=== PATIENT | female | born 1955 | race African-American/Black ===

== ENCOUNTER 2018-08-24 11:10 | Inpatient (IN) | payer OTHER ==
--- NOTE | 2018-08-24 11:37 | PDOC ---
History of Present Illness - General Chief Complaint: Lethargy Stated Complaint: altered mental status/hypotensive Time Seen by Provider: 08/24/18 11:36 - History of Present Illness Initial Comments: 62 year old female with PMH Of ILD (on steroids and on lung transplant list), HTN, HLD, and recent diagnosis of NIDDM presentign with altered mental status. Patient is acutely confuse and cannot provide too much history but does say "I fainted" and knows that she woke up at 6 AM this morning. Her family at bedside state that she was complaining of nausea 4 days ago on and didn't go to work on Friday. At bedside she denies any issues but appears very lethargic and confused. Family states that she is a very active and functional individual with well controlled pathologies. 08/24/18 15:39 Past History - Past Medical History Allergies/Adverse Reactions: Allergies Allergy/AdvReac Type Severity Reaction Status Date / Time No Known Allergies Allergy Verified 08/24/18 11:29 Home Medications: Ambulatory Orders Atorvastatin Calcium 10 mg PO DAILY 08/24/18 Cholecalciferol (Vitamin D3) [Vitamin D3] 800 unit PO DAILY 08/24/18 Metformin HCl [Glucophage] 500 mg PO BID 08/24/18 Mycophenolate Mofetil [Cellcept] 500 mg PO BID 08/24/18 Olmesartan Medoxomil [Benicar (Nf)] 20 mg PO DAILY 08/24/18 Pantoprazole Sodium 40 mg PO DAILY 08/24/18 Prednisone [Prednisone 50 MG TABLETS] 50 mg PO DAILY 08/24/18 COPD: Yes Diabetes: Yes HTN: Yes Hypercholesterolemia: Yes - Suicide/Smoking/Psychosocial Hx Smoking History: Unknown if ever smoked Have you smoked in the past 12 months: No Information on smoking cessation initiated: No Hx Alcohol Use: No Drug/Substance Use Hx: No Review of Systems - Review of Systems Able to Perform ROS?: No (altered) *Physical Exam - Vital Signs Last Vital Signs Temp Pulse Resp BP Pulse Ox 95.8 F L 130 H 28 H 94/77 100 08/24/18 11:13 08/24/18 11:13 08/24/18 11:13 08/24/18 11:13 08/24/18 11:13 - Physical Exam General Appearance: Yes: Nourished, Appropriately Dressed. No: Apparent Distress HEENT: positive: EOMI, MAEGAN. negative: Normal ENT Inspection (dried mucous membranes with vomitus at the corners of her mouth) Neck: positive: Trachea midline, Normal Thyroid, Supple. negative: Tender, Rigid Respiratory/Chest: positive: Lungs Clear, Normal Breath Sounds, Respiratory Distress (mild respiratory distress), Rapid RR. negative: Chest Tender, Accessory Muscle Use Cardiovascular: positive: Regular Rhythm, Tachycardia. negative: Regular Rate Gastrointestinal/Abdominal: positive: Normal Bowel Sounds, Flat, Soft. negative : Tender Lymphatic: negative: Adenopathy, Tenderness Musculoskeletal: positive: Normal Inspection. negative: Decreased Range of Motion Extremity: positive: Normal Capillary Refill, Normal Inspection, Normal Range of Motion. negative: Tender Integumentary: positive: Normal Color, Dry, Warm Neurologic: positive: Alert. negative: Fully Oriented (AO x 2 (person and place ) but had very poor short term recall and believed it was ), Normal Mood/Affect , Normal Response, Motor Strength 09/20 ED Treatment Course - LABORATORY CBC & Chemistry Diagram: 08/25/18 06:20 08/25/18 10:03 Medical Decision Making - Critical Care Time Total Critical Care Time (minutes): 60 Critical Care Statement: The care of this patient involved high complexity decision making to prevent further life threatening deterioration of the patient 's condition and/or to evaluate & treat vital organ system(s) failure or risk of failure. - Medical Decision Making 62 year old female with PMH of ILD and new diagnosis of NIDDM presenting with AMS since this AM after not being heard from for the past 3 days. Patient presenting tachynpic, tachycardic, with dry mucous membranes and dried vomitus around her mouth. A FS was performed with corroborates our leading diagnosis of metabolic encephalopathy in the setting of elevated blood sugars or DKA vs. HHONK. HHONK was corroborated by the lack of an anion GAP and an a blood sugar of 890. Other diagnosis that could explain her AMS or account for a worsened AMS could be steroid induced delirium (on 50 MG of prednisonse daily). If this is truly isolated HHS, it still remains unclear as to what the inciting cause was but it may have been subacute in onset as she was complaining of nausea 4 days prior. It may be that she was under-diagnosed with NIDDM when in fact she truly needs insulin for control. Patient was originally signed out to Dr. Villatoro and the ICU team for ICU care as she required INsulin nida when her BG was still >600 despite 8 units of IV insulin anf two liters of NS. power Alanis patient's sugars corrected to 300s after a few more hours of hydration and insulin drip usage. The drip was discontinued and the change of her status to a possible tele admission was discussed with Dr. Rothman after the ICU did not respond to page x 1. *DC/Admit/Observation/Transfer Diagnosis at time of Disposition: Hyperglycemic hyperosmolar nonketotic coma - Discharge Dispostion Condition at time of disposition: Critical Decision to Admit order: Yes - Referrals - Patient Instructions - Post Discharge Activity
[2018-08-24] MEDS ORDERED: SODIUM CHLORIDE 0.9% 500 ML INFUS.BAG IV ONE ×2 (12:05→14:09)
--- NOTE | 2018-08-24 12:52 | PDOC ---
Attending Attestation - Resident Resident Name: Alba Gonzalez - ED Attending Attestation I have performed the following: I have examined & evaluated the patient, The case was reviewed & discussed with the resident, I agree w/resident's findings & plan, Exceptions are as noted - HPI HPI: 08/24/18 12:48 62 F with h/o DM, HTN, ILD, presenting to ED with lethargy and confusion. Per family, pt was in her USOH until about 2 days ago when she began to complain of nausea and vomiting. Family did not see the pt until today when they found her confused and lethargic. In ED, pt is AnOx2, unable to contribute additional history. Family does not believe pt had any falls or head injury. Does not use ETOH or other drugs. Pt's friend: Trupti Lindquist [phone] Dianna Kothari [phone] - Physicial Exam PE: 08/24/18 12:52 GENERAL: Awake, alert, in no acute distress. HEAD: No signs of trauma EYES: PERRLA, EOMI, sclera anicteric, conjunctiva clear ENT: Auricles normal inspection, hearing grossly normal, nares patent, oropharynx clear without exudates. Moist mucosa NECK: Nontender, no stepoffs, Normal ROM, supple, no lymphadenopathy, JVD, or masses LUNGS: Breath sounds equal, clear to auscultation bilaterally. No wheezes, and no crackles HEART: Regular rate and rhythm, normal S1 and S2, no murmurs, rubs or gallops ABDOMEN: Soft, nontender, normoactive bowel sounds. No guarding, no rebound. No masses EXTREMITIES: Normal range of motion, no edema. No clubbing or cyanosis. No cords, erythema, or tenderness NEUROLOGICAL: Cranial nerves II through XII intact. 5/5 strength and sensation in all extremities, Normal speech, normal gait, normal cerebellar function SKIN: Warm, Dry, normal turgor, no rashes or lesions noted. - Critical Care Time Total Critical Care Time: 120 Critical Care Statement: The care of this patient involved high complexity decision making to prevent further life threatening deterioration of the patient 's condition and/or to evaluate & treat vital organ system(s) failure or risk of failure. - Medical Decision Making 08/24/18 12:52 62 F with lethargy and confusion x 2 days. Pt with elevated fingerstick in ED, suspect DKA vs HHS. Pt with no fevers to suggest infectious process. NO neuro deficits to suggest CVA. - Labs, acetone, VBG - CT head - IVF 08/24/18 15:33 Labs with glucose 800. AG 10, trace ketones. Will tx for HHS Continue IV fluids Administer insulin .1u/kg push CT head unremarkable
[2018-08-24 13:10] LABS: VENOUS PH 7.31 (7.31-7.41)
[2018-08-24 13:13] LABS: BASO % 0.2 % (0-2.0); HEMATOCRIT 48.3 % (32.4-45.2); HEMOGLOBIN 15.1 GM/dL (10.7-15.3); LYMPH % 7.1 % (8-40); MCH 31.7 pg (25.7-33.7); MCHC 31.4 g/dl (32.0-36.0); MEAN PLT VOLUME 9.5 fl (7.5-11.1); MONO % 2.2 % (3.8-10.2); NEUT % 90.5 % (42.8-82.8); PLATELET COUNT 223 K/MM3 (134-434); RBC 4.78 M/mm3 (3.60-5.2); RDW 17.4 % (11.6-15.6); WHITE BLOOD COUNT 8.1 K/mm3 (4.0-10.0)
[2018-08-24 13:18] LABS: VENOUS PO2 24.7 mmHg (30-40)
[2018-08-24 13:40] LABS: INR 0.98 (0.83-1.09); PROTHROMBIN TIME (PATIENT) 11.6 SEC (9.7-13.0)
[2018-08-24 13:43] LABS: ACTIVATED PTT 23.1 SECONDS (25.2-36.5)
[2018-08-24 13:49] LABS: ALBUMIN 4.5 g/dl (3.4-5.0); ALK PHOS 110 U/L (45-117); ANION GAP 10 MMOL/L (8-16); BILIRUBIN,TOTAL 0.5 mg/dL (0.2-1); BLOOD UREA NITROGEN 80 mg/dL (7-18); CALCIUM 10.1 mg/dL (8.5-10.1); CHLORIDE 105 mmol/L (98-107); CO2 28 mmol/L (21-32); CREATININE 3.1 mg/dL (0.55-1.3); POTASSIUM 5.2 mmol/L (3.5-5.1); SGOT/AST 17 U/L (15-37); SGPT/ALT 34 U/L (13-61); SODIUM 143 mmol/L (136-145); TOT PROT 8.5 g/dl (6.4-8.2)
[2018-08-24 13:51] LABS: GLUCOSE,RANDOM 891 mg/dL (74-106)
[2018-08-24] MEDS ORDERED: INSULIN REGULAR HUMAN 100 UNITS/ML *VIAL IVPUSH ONE (14:08)
[2018-08-24] MEDS ORDERED: INSULIN REGULAR HUMAN 100 UNITS/ML *VIAL ONE (14:17)
[2018-08-24] MEDS ORDERED: INSULIN REGULAR 100 UNITS in SODIUM CHLORIDE 99 ML IVPB SCH (15:30)
--- NOTE | 2018-08-24 16:43 | CONSULT ---
Consultation: REQUESTING PROVIDER: Dr. Gonzalez CONSULT REQUEST: We have been asked to medically evaluate this patient for ( specify). HISTORY OF PRESENT ILLNESS: Patient is lethargic and unable to provide history. The following history is obtained from the patient's coworker at bedside and the EMR. The patient is a 62 yo f w/ PMH DM, HTN, ILD (on cellcept and transplant list) who was BIBEMS from home due to unresponsiveness and confusion. The patient left work Friday stating that she "did not feel good" and felt nauseous. From that point, the patient was not heard from over the weekend. She did not answer her coworker's phone calls on Friday. When the patient did not show up for work on Friday, her coworkers called EMS to find her. On arrival, EMS found her to be minimally responsive and confused. she was started on a 500ml bolus and brought into the ED. In the ED, she was found to have a blood glucose of 891 on BMP with a lactic acidosis and normal pH. She received .1u/kg IVP regular insulin followed by .1u/kg Insulin GTT. also received a total of 3L bolus Most BGM read >600. CXR shows possible left base pleural effusion vs. infiltrate. No fevers while in ED. REVIEW OF SYSTEMS: Unable to obtain due to clinical status PHYSICAL EXAMINATION Vital Signs - 24 hr 08/24/18 08/24/18 08/24/18 11:13 12:02 13:14 Temperature 95.8 F L 97.8 F Pulse Rate 130 H Pulse Rate [ 110 H Apical] Respiratory 28 H 30 H Rate Blood Pressure 94/77 Blood Pressure 95/79 [Left Arm] O2 Sat by Pulse 100 100 Oximetry (%) 08/24/18 08/24/18 14:15 15:14 Temperature 97.8 F Pulse Rate Pulse Rate [ 114 H Apical] Respiratory 28 H Rate Blood Pressure Blood Pressure 132/97 [Left Arm] O2 Sat by Pulse Oximetry (%) GENERAL: Patient lethargic, rousable to voice or physical stimulus. Able to follow commands inconsistently. Withdraws briskly to pain. HEAD: Normal with no signs of trauma. EYES: Pupils equal, round and reactive to light, extraocular movements intact, sclera anicteric, conjunctiva clear. No lid lag. LUNGS: Crackles heard at the right base. No accessory muscle use. HEART: Regular rate and rhythm, normal S1 and S2 without murmur, rub or gallop. ABDOMEN: Soft, nontender, not distended, normoactive bowel sounds, no guarding, no rebound, no masses. No hepatomegaly or splenomegaly. LOWER EXTREMITIES: 2+ pulses, warm, well-perfused. No calf tenderness. No peripheral edema. NEUROLOGICAL: Cranial nerves II-X intact. Strength 5/5 in all 4 extremities. SKIN: Warm, dry, normal turgor, no rashes or lesions noted. Laboratory Results - last 24 hr 08/24/18 08/24/18 08/24/18 12:05 12:05 12:05 WBC 8.1 RBC 4.78 Hgb 15.1 Hct 48.3 H MCV 101.0 H MCH 31.7 MCHC 31.4 L RDW 17.4 H Plt Count 223 MPV 9.5 Absolute Neuts (auto) 7.3 Neutrophils % 90.5 H Lymphocytes % 7.1 L Monocytes % 2.2 L Eosinophils % 0.0 Basophils % 0.2 Nucleated RBC % 0 PT with INR 11.60 INR 0.98 PTT (Actin FS) 23.1 L VBG pH 7.31 POC VBG pCO2 51.0 POC VBG pO2 24.7 L VBG HCO3 24.7 VBG O2 Sat (Patel) 29.3 L VBG Base Excess -1.9 Sodium Potassium Chloride Carbon Dioxide Anion Gap BUN Creatinine Creat Clearance w eGFR POC Glucometer Random Glucose Lactic Acid Calcium Total Bilirubin AST ALT Alkaline Phosphatase Troponin I Total Protein Albumin Acetone, Qual 08/24/18 08/24/18 08/24/18 12:05 12:05 12:05 WBC RBC Hgb Hct MCV MCH MCHC RDW Plt Count MPV Absolute Neuts (auto) Neutrophils % Lymphocytes % Monocytes % Eosinophils % Basophils % Nucleated RBC % PT with INR INR PTT (Actin FS) VBG pH POC VBG pCO2 POC VBG pO2 VBG HCO3 VBG O2 Sat (Patel) VBG Base Excess Sodium 143 Potassium 5.2 H Chloride 105 Carbon Dioxide 28 Anion Gap 10 BUN 80 H Creatinine 3.1 H Creat Clearance w eGFR 15.33 POC Glucometer Random Glucose 891 H* Lactic Acid 2.8 H* Calcium 10.1 Total Bilirubin 0.5 AST 17 ALT 34 Alkaline Phosphatase 110 Troponin I 0.08 H Total Protein 8.5 H Albumin 4.5 Acetone, Qual 08/24/18 08/24/18 08/24/18 12:05 12:21 15:26 WBC RBC Hgb Hct MCV MCH MCHC RDW Plt Count MPV Absolute Neuts (auto) Neutrophils % Lymphocytes % Monocytes % Eosinophils % Basophils % Nucleated RBC % PT with INR INR PTT (Actin FS) VBG pH POC VBG pCO2 POC VBG pO2 VBG HCO3 VBG O2 Sat (Patel) VBG Base Excess Sodium Potassium Chloride Carbon Dioxide Anion Gap BUN Creatinine Creat Clearance w eGFR POC Glucometer > 600 > 600 Random Glucose Lactic Acid Calcium Total Bilirubin AST ALT Alkaline Phosphatase Troponin I Total Protein Albumin Acetone, Qual Trace H 08/24/18 15:53 WBC RBC Hgb Hct MCV MCH MCHC RDW Plt Count MPV Absolute Neuts (auto) Neutrophils % Lymphocytes % Monocytes % Eosinophils % Basophils % Nucleated RBC % PT with INR INR PTT (Actin FS) VBG pH POC VBG pCO2 POC VBG pO2 VBG HCO3 VBG O2 Sat (Patel) VBG Base Excess Sodium Potassium Chloride Carbon Dioxide Anion Gap BUN Creatinine Creat Clearance w eGFR POC Glucometer Random Glucose Lactic Acid 3.0 H* Calcium Total Bilirubin AST ALT Alkaline Phosphatase Troponin I Total Protein Albumin Acetone, Qual Active Medications Generic Name Dose Route Start Last Admin Trade Name Freq PRN Reason Stop Dose Admin Chlorhexidine Gluconate 1 applic 08/24/18 22:00 Hibiclens For Decolonization - TP HS SMILEY Heparin Sodium (Porcine) 5,000 unit 08/24/18 18:00 Heparin - SQ Q8H-IV SMILEY Insulin Human Regular 100 100 mls @ 7.25 mls/hr 08/24/18 15:30 08/24/18 16:02 units/ Sodium Chloride IVPB 0.1 units/kg/hr TITR SMILEY 7.25 mls/hr Administration Protocol 0.1 UNITS/KG/HR Mupirocin 1 applic 08/24/18 22:00 Bactroban Ointment (For Decolonization) - NS 08/29/18 21:59 BID [facility] ASSESSMENT/PLAN: The patient is a 62 yo f w/ PMH DM, HTN, ILD (on cellcept and transplant list) who was BIBEMS from home due to unresponsiveness and confusion found to be in HHS. #Neuro -able to follow commands -waxing and waning mental status -no focal neuro deficits on limited exam #Endocrine -elevated blood glucose w/ normal pH and normal anion gap -surrently on insulin GTT -BGM q1h until stabilized -bmp q4h overnight -NS@100 -trend lactic acid q2h until decreasing -NPO while on insulin GTT -will add KCL to IVF once K+ <3.3, will monitor while on insulin GTT #Pulmonary -crackles at base could be 2/2 underlying ILD vs infectious process -CXR showing possible consolidation at left base; patient hypothermic and tachycardic; will empirically cover w/ rocephin and azithromycin -h/o ILD no cellcept and oral prednisone -c/w cellcept, holding prednisone until BGM stabilized. #cardiac -continue home Benicar for BP control #FEN -insulin GTT, NS@100 -monitor potassium as above -NPO #Prophy -heparin SQ 5k units Q8H #Dispo -admit ICU Visit type - Emergency Visit Emergency Visit: Yes ED Registration Date: 08/24/18 Care time: The patient presented to the Emergency Department on the above date and was hospitalized for further evaluation of their emergent condition. - New Patient This patient is new to me today: Yes Date on this admission: 08/24/18 - Critical Care Critical Care patient: Yes Total Critical Care Time (in minutes): 40 Critical Care Statement: The care of this patient involved high complexity decision making to prevent further life threatening deterioration of the patient 's condition and/or to evaluate & treat vital organ system(s) failure or risk of failure.
[2018-08-24 16:48] LABS: ALBUMIN 2.9 g/dl (3.4-5.0); ALK PHOS 70 U/L (45-117); ANION GAP 10 MMOL/L (8-16); BILIRUBIN,TOTAL 0.3 mg/dL (0.2-1); BLOOD UREA NITROGEN 74 mg/dL (7-18); CALCIUM 8.3 mg/dL (8.5-10.1); CHLORIDE 122 mmol/L (98-107); CO2 23 mmol/L (21-32); CREATININE 2.7 mg/dL (0.55-1.3); POTASSIUM 4.3 mmol/L (3.5-5.1); SGOT/AST 17 U/L (15-37); SGPT/ALT 23 U/L (13-61); SODIUM 155 mmol/L (136-145); TOT PROT 5.5 g/dl (6.4-8.2)
[2018-08-24 16:57] LABS: GLUCOSE,RANDOM 584 mg/dL (74-106)
[2018-08-24] MEDS ORDERED: CEFTRIAXONE 1 GM in DEXTROSE 5%-WATER - 50 ML IVPB ONE (17:00)
[2018-08-24] MEDS ORDERED: SODIUM CHLORIDE 1,000 ML IV SCH ×2 (17:00→17:15)
[2018-08-24] MEDS ORDERED: SODIUM CHLORIDE 1,000 ML with POTASSIUM CHLORIDE 20 MEQ IVPB SCH (17:01)
[2018-08-24] MEDS ORDERED: CEFTRIAXONE 1 GM/50 ML BAG ONE (18:43)
[2018-08-24] MEDS ORDERED: AZITHROMYCIN IVPB 500 MG in DEXTROSE 5%-WATER - 250 ML IVPB ONE (19:00)
[2018-08-24] MEDS ORDERED: AZITHROMYCIN IVPB 500 MG/250 ML BAG IVPB ONE (19:11)
--- NOTE | 2018-08-24 19:39 | HP ---
Admitting History and Physical - Primary Care Physician PCP: Kelsey Villatoro - Admission History of Present Illness: 62 year old female with PMH Of ILD (on steroids and on lung transplant list), HTN, HLD, and recent diagnosis of NIDDM presentign with altered mental status. Patient is acutely confuse and cannot provide too much history but does say "I fainted" and knows that she woke up at 6 AM this morning. Her family at bedside state that she was complaining of nausea 4 days ago on and didn't go to work on Friday. At bedside she denies any issues but appears very lethargic and confused. Family states that she is a very active and functional individual with well controlled pathologies. - Past Medical History Cardiovascular: Yes: HTN, Hyperlipdemia Endocrine: Yes: Diabetes Mellitus - Smoking History Smoking history: Unknown if ever smoked Have you smoked in the past 12 months: No - Alcohol/Substance Use Hx Alcohol Use: No Home Medications - Allergies Allergies/Adverse Reactions: Allergies Allergy/AdvReac Type Severity Reaction Status Date / Time No Known Allergies Allergy Verified 08/24/18 11:29 - Home Medications Home Medications: Ambulatory Orders Atorvastatin Calcium 10 mg PO DAILY 08/24/18 Cholecalciferol (Vitamin D3) [Vitamin D3] 800 unit PO DAILY 08/24/18 Metformin HCl [Glucophage] 500 mg PO BID 08/24/18 Mycophenolate Mofetil [Cellcept] 500 mg PO BID 08/24/18 Olmesartan Medoxomil [Benicar (Nf)] 20 mg PO DAILY 08/24/18 Pantoprazole Sodium 40 mg PO DAILY 08/24/18 Prednisone [Prednisone 50 MG TABLETS] 50 mg PO DAILY 08/24/18 Physical Examination Vital Signs: Vital Signs Temperature 97.8 F 08/24/18 14:15 Pulse Rate 104 H 08/24/18 18:24 Respiratory Rate 25 H 08/24/18 18:24 Blood Pressure 103/76 08/24/18 18:24 O2 Sat by Pulse Oximetry (%) 95 08/24/18 18:24 Constitutional: Yes: No Distress HENT: Yes: Atraumatic Neck: Yes: Supple Cardiovascular: Yes: Regular Rate and Rhythm Respiratory: Yes: CTA Bilaterally Gastrointestinal: Yes: Normal Bowel Sounds Extremities: Yes: WNL Neurological: Yes: Alert, Oriented Labs: CBC, BMP 08/24/18 12:05 08/24/18 16:00 Problem List - Problems (1) Diabetes Assessment/Plan: on insulin and bgms on prednisone which could be the reason for high blood sugars endocrine on board Code(s): E11.9 - TYPE 2 DIABETES MELLITUS WITHOUT COMPLICATIONS (2) HTN (hypertension) Assessment/Plan: on meds monitor Code(s): I10 - ESSENTIAL (PRIMARY) HYPERTENSION (3) HLD (hyperlipidemia) Code(s): E78.5 - HYPERLIPIDEMIA, UNSPECIFIED (4) Chronic hypoxemic respiratory failure Assessment/Plan: on oxygen Code(s): J96.11 - CHRONIC RESPIRATORY FAILURE WITH HYPOXIA (5) Hyperglycemic hyperosmolar nonketotic coma Assessment/Plan: on ivf insulin drip Code(s): E11.01 - TYPE 2 DIABETES MELLITUS WITH HYPEROSMOLARITY WITH COMA (6) Interstitial lung disease Assessment/Plan: on prednisone continue other home meds Code(s): J84.9 - INTERSTITIAL PULMONARY DISEASE, UNSPECIFIED Assessment/Plan Laboratory Tests 08/24/18 08/24/18 08/24/18 12:05 12:05 12:05 WBC 8.1 RBC 4.78 Hgb 15.1 Hct 48.3 H MCV 101.0 H MCH 31.7 MCHC 31.4 L RDW 17.4 H Plt Count 223 MPV 9.5 Absolute Neuts (auto) 7.3 Neutrophils % 90.5 H Lymphocytes % 7.1 L Monocytes % 2.2 L Eosinophils % 0.0 Basophils % 0.2 Nucleated RBC % 0 PT with INR 11.60 INR 0.98 PTT (Actin FS) 23.1 L VBG pH 7.31 POC VBG pCO2 51.0 POC VBG pO2 24.7 L VBG HCO3 24.7 VBG O2 Sat (Patel) 29.3 L VBG Base Excess -1.9 Sodium Potassium Chloride Carbon Dioxide Anion Gap BUN Creatinine Creat Clearance w eGFR POC Glucometer Random Glucose Lactic Acid Calcium Total Bilirubin AST ALT Alkaline Phosphatase Troponin I Total Protein Albumin Acetone, Qual 08/24/18 08/24/18 08/24/18 12:05 12:05 12:05 WBC RBC Hgb Hct MCV MCH MCHC RDW Plt Count MPV Absolute Neuts (auto) Neutrophils % Lymphocytes % Monocytes % Eosinophils % Basophils % Nucleated RBC % PT with INR INR PTT (Actin FS) VBG pH POC VBG pCO2 POC VBG pO2 VBG HCO3 VBG O2 Sat (Patel) VBG Base Excess Sodium 143 Potassium 5.2 H Chloride 105 Carbon Dioxide 28 Anion Gap 10 BUN 80 H Creatinine 3.1 H Creat Clearance w eGFR 15.33 POC Glucometer Random Glucose 891 H* Lactic Acid 2.8 H* Calcium 10.1 Total Bilirubin 0.5 AST 17 ALT 34 Alkaline Phosphatase 110 Troponin I 0.08 H Total Protein 8.5 H Albumin 4.5 Acetone, Qual 08/24/18 08/24/18 08/24/18 12:05 12:21 15:26 WBC RBC Hgb Hct MCV MCH MCHC RDW Plt Count MPV Absolute Neuts (auto) Neutrophils % Lymphocytes % Monocytes % Eosinophils % Basophils % Nucleated RBC % PT with INR INR PTT (Actin FS) VBG pH POC VBG pCO2 POC VBG pO2 VBG HCO3 VBG O2 Sat (Patel) VBG Base Excess Sodium Potassium Chloride Carbon Dioxide Anion Gap BUN Creatinine Creat Clearance w eGFR POC Glucometer > 600 > 600 Random Glucose Lactic Acid Calcium Total Bilirubin AST ALT Alkaline Phosphatase Troponin I Total Protein Albumin Acetone, Qual Trace H 08/24/18 08/24/18 08/24/18 15:53 16:00 18:05 WBC RBC Hgb Hct MCV MCH MCHC RDW Plt Count MPV Absolute Neuts (auto) Neutrophils % Lymphocytes % Monocytes % Eosinophils % Basophils % Nucleated RBC % PT with INR INR PTT (Actin FS) VBG pH POC VBG pCO2 POC VBG pO2 VBG HCO3 VBG O2 Sat (Patel) VBG Base Excess Sodium 155 H Potassium 4.3 Chloride 122 H Carbon Dioxide 23 Anion Gap 10 BUN 74 H Creatinine 2.7 H Creat Clearance w eGFR 17.98 POC Glucometer 314 Random Glucose 584 H* Lactic Acid 3.0 H* Calcium 8.3 L Total Bilirubin 0.3 AST 17 ALT 23 Alkaline Phosphatase 70 Troponin I Total Protein 5.5 L Albumin 2.9 L Acetone, Qual Active Medications Generic Name Dose Route Start Last Admin Trade Name Freq PRN Reason Stop Dose Admin Chlorhexidine Gluconate 1 applic 08/24/18 22:00 Hibiclens For Decolonization - TP HS [facility] Heparin Sodium (Porcine) 5,000 unit 08/24/18 22:00 Heparin - SQ TID [facility] Insulin Human Regular 100 100 mls @ 7.25 mls/hr 08/24/18 15:30 08/24/18 16:02 units/ Sodium Chloride IVPB 0.1 units/kg/hr TITR SMILEY 7.25 mls/hr Administration Protocol 0.1 UNITS/KG/HR Sodium Chloride 1,000 mls @ 100 mls/hr 08/24/18 17:15 08/24/18 18:49 Normal Saline - IV 100 mls/hr ASDIR SMILEY Administration Azithromycin 500 mg/ Dextrose 250 mls @ 250 mls/hr 08/24/18 19:00 08/24/18 19 :16 IVPB 08/24/18 19:59 250 mls/hr ONCE ONE Administration Mupirocin 1 applic 08/24/18 22:00 Bactroban Ointment (For Decolonization) - NS 08/29/18 21:59 BID [facility] Mycophenolate Mofetil 500 mg 08/24/18 22:00 Cellcept - PO BID [facility] Prednisone 50 mg 08/25/18 10:00 Deltasone - PO DAILY [facility] Valsartan 160 mg 08/25/18 10:00 Diovan - PO DAILY [facility]
[2018-08-24] MEDS ORDERED: CHLORHEXIDINE GLUCONATE 4% CLEANSER FOR DECOLONIZATION TP SCH (22:00)
[2018-08-24] MEDS ORDERED: HEPARIN NA (PORCINE) 5,000 UNITS/ML 1ML VIAL SQ SCH (22:00)
[2018-08-24 22:14] LABS: ANION GAP 10 MMOL/L (8-16); BLOOD UREA NITROGEN 56 mg/dL (7-18); CALCIUM 7.6 mg/dL (8.5-10.1); CHLORIDE 128 mmol/L (98-107); CO2 21 mmol/L (21-32); CREATININE 1.9 mg/dL (0.55-1.3); POTASSIUM 4.3 mmol/L (3.5-5.1); SODIUM 159 mmol/L (136-145)
[2018-08-24 22:25] LABS: URINE APPEARANCE CLEAR; URINE BILIRUBIN NEGATIVE (NEGATIVE); URINE COLOR YELLOW; URINE GLUCOSE (UA) 3+ (NEGATIVE); URINE KETONE TRACE (NEGATIVE); URINE LEUK ESTERASE NEGATIVE (NEGATIVE); URINE NITRITE NEGATIVE (NEGATIVE); URINE PROTEIN NEGATIVE (NEGATIVE); URINE UROBILINOGEN 0.2 mg/dL (0.2-1.0)
[2018-08-24 22:26] LABS: GLUCOSE,RANDOM 358 mg/dL (74-106)
[2018-08-24] MEDS ORDERED: HEPARIN NA (PORCINE) 5,000 UNITS/ML 1ML VIAL ONE (22:42)
[2018-08-24] MEDS: HEPARIN NA (PORCINE) 5,000 UNITS/ML 1ML VIAL SQ SCH (22:48)
[2018-08-24] MEDS: MYCOPHENOLATE MOFETIL 500 MG TABLET PO SCH (23:17)
[2018-08-25 00:57] LABS: ANION GAP 6 MMOL/L (8-16); BLOOD UREA NITROGEN 48 mg/dL (7-18); CALCIUM 7.8 mg/dL (8.5-10.1); CHLORIDE 130 mmol/L (98-107); CO2 23 mmol/L (21-32); CREATININE 1.5 mg/dL (0.55-1.3); POTASSIUM 4.2 mmol/L (3.5-5.1); SODIUM 158 mmol/L (136-145)
[2018-08-25 01:07] LABS: GLUCOSE,RANDOM 360 mg/dL (74-106)
[2018-08-25] MEDS ORDERED: POTASSIUM CHLORIDE 20 MEQ PREMIX IVPB 100 ML IVPB ONE (02:41)
[2018-08-25] MEDS ORDERED: ONDANSETRON 4 MG/2 ML VIAL IVPUSH PRN (02:45)
[2018-08-25] MEDS ORDERED: SODIUM CHLORIDE 0.9% 1000 ML INFUS.BAG IV ONE (02:45)
[2018-08-25] MEDS ORDERED: KCL 10 MEQ IVPB 20 MEQ/200 ML INFUS.BAG IVPB ONE (02:53)
[2018-08-25] MEDS: KCL 10 MEQ IVPB 10 MEQ/100 ML INFUS.BAG IVPB SCH ×2 (02:59→04:01)
[2018-08-25 03:27] LABS: ANION GAP 5 MMOL/L (8-16); BLOOD UREA NITROGEN 45 mg/dL (7-18); CALCIUM 7.7 mg/dL (8.5-10.1); CHLORIDE 130 mmol/L (98-107); CO2 23 mmol/L (21-32); CREATININE 1.4 mg/dL (0.55-1.3); POTASSIUM 4.1 mmol/L (3.5-5.1); SODIUM 158 mmol/L (136-145)
[2018-08-25 03:28] LABS: GLUCOSE,RANDOM 366 mg/dL (74-106)
[2018-08-25] MEDS ORDERED: ONDANSETRON 4 MG/2 ML VIAL ONE (03:35)
--- NOTE | 2018-08-25 03:44 | PN ---
Progress Note (short form) - Note Progress Note: patient evaluated in ER ; currently off insulin drip and off IVF; with nausea ; lethargy -last lab draw 1230 am; NA 158; glucose 360 -stat BMP ordered; no gap; serum glucose 366; NA 158; calculated serum osmols 355 -insulin drip restarted; IVF NA -spoke with nurse to make sure BGM q1h; repeat BMP in 3h -once serum glucose 250-300; change IVF d51/2NS; close osmolar gap; replace k as per bmp -sq insulin 0.1Uxkg in divided doses; after patient glucose 200-250; not lethargic , not nauseated; when able to eat
[2018-08-25] MEDS ORDERED: INSULIN REGULAR 100 UNITS in SODIUM CHLORIDE 99 ML IVPB SCH (03:45)
[2018-08-25] MEDS ORDERED: DEXTROSE 5%-0.45% SALINE 1,000 ML IV SCH (06:30)
[2018-08-25 07:23] LABS: BASO % 0.1 % (0-2.0); EOS % 0.2 % (0-4.5); HEMATOCRIT 34.8 % (32.4-45.2); HEMOGLOBIN 11.4 GM/dL (10.7-15.3); LYMPH % 22.8 % (8-40); MCH 32.5 pg (25.7-33.7); MCHC 32.7 g/dl (32.0-36.0); MEAN CELL VOLUME 99.4 fl (80-96); MEAN PLT VOLUME 8.9 fl (7.5-11.1); MONO % 2.5 % (3.8-10.2); NEUT % 74.4 % (42.8-82.8); PLATELET COUNT 160 K/MM3 (134-434); RDW 17.7 % (11.6-15.6); WHITE BLOOD COUNT 5.2 K/mm3 (4.0-10.0)
[2018-08-25 07:28] LABS: PROTHROMBIN TIME (PATIENT) 11.8 SEC (9.7-13.0)
[2018-08-25 07:45] LABS: ANION GAP 6 MMOL/L (8-16); BLOOD UREA NITROGEN 38 mg/dL (7-18); CALCIUM 8.2 mg/dL (8.5-10.1); CHLORIDE 133 mmol/L (98-107); CO2 25 mmol/L (21-32); CREATININE 1.4 mg/dL (0.55-1.3); GLUCOSE,RANDOM 176 mg/dL (74-106); POTASSIUM 3.9 mmol/L (3.5-5.1)
[2018-08-25 07:48] LABS: SODIUM 164 mmol/L (136-145)
[2018-08-25 07:54] LABS: ALBUMIN 2.7 g/dl (3.4-5.0); ALK PHOS 63 U/L (45-117); ANION GAP 6 MMOL/L (8-16); BILIRUBIN,TOTAL 0.2 mg/dL (0.2-1); BLOOD UREA NITROGEN 38 mg/dL (7-18); CALCIUM 7.6 mg/dL (8.5-10.1); CHLORIDE 133 mmol/L (98-107); CO2 25 mmol/L (21-32); CREATININE 1.4 mg/dL (0.55-1.3); GLUCOSE,RANDOM 169 mg/dL (74-106); MAGNESIUM 2.8 mg/dL (1.8-2.4); POTASSIUM 3.8 mmol/L (3.5-5.1); SGOT/AST 17 U/L (15-37); SGPT/ALT 26 U/L (13-61); TOT PROT 5.4 g/dl (6.4-8.2)
[2018-08-25] MEDS ORDERED: DEXTROSE 5%-WATER - 1,000 ML IV SCH ×2 (08:00→08:11)
[2018-08-25] MEDS: INSULIN SLIDING SCALE (NOVOLOG) 1 VIAL SQ SCH ×7 (08:16→21:07)
[2018-08-25 08:24] LABS: PHOSPHOROUS 0.9 mg/dL (2.5-4.9); SODIUM 164 mmol/L (136-145)
[2018-08-25] MEDS ORDERED: VALSARTAN 160 MG TABLET (UD) PO SCH (10:00)
[2018-08-25] MEDS ORDERED: predniSONE 20 MG TABLET (UD) PO SCH (10:00)
[2018-08-25] MEDS ORDERED: predniSONE 10 MG TABLET (UD) ONE (10:11)
[2018-08-25] MEDS ORDERED: predniSONE 20 MG TABLET (UD) ONE (10:11)
[2018-08-25] MEDS ORDERED: VALSARTAN 80 MG TABLET (UD) ONE (10:12)
[2018-08-25] MEDS: HEPARIN NA (PORCINE) 5,000 UNITS/ML 1ML VIAL SQ SCH ×2 (10:20→21:28)
[2018-08-25] MEDS: MYCOPHENOLATE MOFETIL 500 MG TABLET PO SCH ×2 (10:20→22:10)
--- NOTE | 2018-08-25 10:50 | PN ---
Progress Note (short form) - Note Progress Note: ID CONSULT DICTATED ASKED BY DR MAYA LAST EVENING TO EVALUATE PT FOR SEPSIS HX ILD ON IMMUNOSUPPRESSIVE THERAPY ADMITTED WITH UNCONTROLLED DIABETES HYPOTHERMIC ON ADMISSION R/O SEPSIS AWAIT C/S CONTINUE ZITHROMAX/ CEFTRIAXONE
[2018-08-25 10:52] LABS: ANION GAP 5 MMOL/L (8-16); BLOOD UREA NITROGEN 35 mg/dL (7-18); CALCIUM 8.2 mg/dL (8.5-10.1); CHLORIDE 129 mmol/L (98-107); CO2 23 mmol/L (21-32); CREATININE 1.1 mg/dL (0.55-1.3); GLUCOSE,RANDOM 226 mg/dL (74-106); POTASSIUM 4.1 mmol/L (3.5-5.1); SODIUM 157 mmol/L (136-145)
[2018-08-25] MEDS ORDERED: AZITHROMYCIN IVPB 500 MG in DEXTROSE 5%-WATER - 250 ML IVPB SCH (11:00)
[2018-08-25] MEDS ORDERED: CEFTRIAXONE 2 GM in DEXTROSE 5%-WATER 100 ML IVPB SCH (11:00)
[2018-08-25] MEDS ORDERED: AZITHROMYCIN IVPB 500 MG/250 ML BAG IVPB ONE (11:05)
[2018-08-25] MEDS ORDERED: CEFTRIAXONE 2 GM/100 ML BAG IVPB ONE (11:05)
--- NOTE | 2018-08-25 11:25 | EKG ---
Test Reason : Blood Pressure : / mmHG Vent. Rate : 088 BPM Atrial Rate : 088 BPM P-R Int : 158 ms QRS Dur : 092 ms QT Int : 344 ms P-R-T Axes : 253 -34 010 degrees QTc Int : 416 ms ECTOPIC ATRIAL RHYTHM WITH FREQUENT PREMATURE VENTRICULAR COMPLEXES LEFT AXIS DEVIATION NONSPECIFIC T WAVE ABNORMALITY ABNORMAL ECG Confirmed by MD TESSA, NAREN ([id number]) on 08/25/2018 11:25:00 AM Referred By: Confirmed By:NAREN ZARATE MD
--- NOTE | 2018-08-25 11:26 | CONS ---
DATE OF CONSULTATION: DATE OF DICTATION: 08/25/2018 The patient is a 62-year-old female evaluated for sepsis. Consultation was at the request of Dr. Borrero. The patient was recently diagnosed with interstitial lung disease and placed on CellCept and prednisone. She reports that she was well until this past weekend when she began to feel lethargic. She became increasingly confused. She did not report to work as scheduled on Friday. 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 She was found by EMS to be poorly responsive and confused. The patient was evaluated in the emergency room. Blood sugar on presentation was 891. She was also noted to be hypothermic with a temperature of 95.8. Cultures were obtained. She was empirically treated with Zithromax and ceftriaxone. Chest x-ray showed some blunting of the left costophrenic angle, possible infiltrate. She reports feeling well prior to this episode. She denies any recent febrile illness, no complaints of chest pain, shortness of breath, cough, or sputum production. No vomiting or diarrhea. No dysuria or hematuria. No infected skin lesions. PAST MEDICAL HISTORY: Positive for interstitial lung disease on CellCept and prednisone 50 mg a day. Hypertension, hyperlipidemia. ALLERGIES: No known allergies. MEDICATIONS: Lipitor, Glucophage, Benicar, Protonix, prednisone, Bactrim prophylaxis. SOCIAL HISTORY: She works as a guidance counselor in the [place]. She is a nonsmoker, nondrinker. She is monogamous with 1 male partner. She denies risk factors for HIV. REVIEW OF SYSTEMS: Neurologic: Positive for altered mental status. No seizure activity or focal weakness. Cardiac: Negative chest pain or palpitations. Respiratory: Negative cough or sputum production. Gastrointestinal: Negative vomiting or diarrhea. Genitourinary: Negative for urinary tract infection. LABORATORY DATA: White count 5.2, hematocrit 34.8, platelet count 160, creatinine 1.4. Lactic acid 2.8. PHYSICAL EXAMINATION: General: She is awake and alert, in no acute distress. Vital Signs: Temperature 97.8, blood pressure 142/97, pulse 94, regular. Respirations 18 per minute. HEENT: Sclerae are anicteric. Oropharynx: No injection or exudate. Neck: Supple. No palpable nodes. Heart: Heart sounds S1, S2. Lungs: Crepitations at the right base. Abdomen: Soft. No tenderness elicited. No mass, rebound, rigidity. Extremities: Negative for edema. No skin lesions noted. IMPRESSION: 1. Uncontrolled diabetes mellitus. 2. Toxic metabolic encephalopathy, improved. 3. Rule out sepsis. 4. Status post hypothermia. 5. Interstitial lung disease on immunosuppressive therapy. Await sepsis workup. Continue empiric antibiotic coverage with Zithromax and ceftriaxone. Continue Pneumocystis carinii pneumonia prophylaxis with Bactrim. Thank you for the kind referral. BARBIE GLYNN M.D. [id number]
--- NOTE | 2018-08-25 11:45 | PN ---
Physical Exam: SUBJECTIVE: ICU progress note Patient seen and examined at bedside. She is much more awake and responsive today. She states that she felt nauseous over the weekend and does not remember the events Friday or Friday. Currently feels well with no complaints. OBJECTIVE: Vital Signs Period Temp Pulse Resp BP Sys/Shultz Pulse Ox Last 24 Hr 97.6 F-97.8 F 86-114 18-30 95-142/65-97 95-100 GENERAL: The patient is awake, alert, and fully oriented, in no acute distress. HEAD: Normal with no signs of trauma. EYES: PERRL, extraocular movements intact, sclera anicteric, conjunctiva clear. No ptosis. LUNGS: Crackles on the right, CTA on the left HEART: Regular rate and rhythm, S1, S2 without murmur, rub or gallop. ABDOMEN: Soft, nontender, nondistended, normoactive bowel sounds, no guarding, no rebound, no hepatosplenomegaly, no masses. EXTREMITIES: 2+ pulses, warm, well-perfused, no edema. NEUROLOGICAL: Cranial nerves II through X grossly intact. Normal speech. SKIN: Warm, dry, normal turgor, no rashes or lesions noted Laboratory Results - last 24 hr 08/24/18 08/24/18 08/24/18 12:05 12:05 12:05 WBC 8.1 RBC 4.78 Hgb 15.1 Hct 48.3 H MCV 101.0 H MCH 31.7 MCHC 31.4 L RDW 17.4 H Plt Count 223 MPV 9.5 Absolute Neuts (auto) 7.3 Neutrophils % 90.5 H Lymphocytes % 7.1 L Monocytes % 2.2 L Eosinophils % 0.0 Basophils % 0.2 Nucleated RBC % 0 PT with INR 11.60 INR 0.98 PTT (Actin FS) 23.1 L VBG pH 7.31 POC VBG pCO2 51.0 POC VBG pO2 24.7 L VBG HCO3 24.7 VBG O2 Sat (Patel) 29.3 L VBG Base Excess -1.9 Sodium Potassium Chloride Carbon Dioxide Anion Gap BUN Creatinine Creat Clearance w eGFR POC Glucometer Random Glucose Lactic Acid Calcium Phosphorus Magnesium Total Bilirubin AST ALT Alkaline Phosphatase Troponin I Total Protein Albumin Urine Color Urine Appearance Urine pH Ur Specific [place] Urine Protein Urine Glucose (UA) Urine Ketones Urine Blood Urine Nitrite Urine Bilirubin Urine Urobilinogen Ur Leukocyte Esterase Acetone, Qual 08/24/18 08/24/18 08/24/18 12:05 12:05 12:05 WBC RBC Hgb Hct MCV MCH MCHC RDW Plt Count MPV Absolute Neuts (auto) Neutrophils % Lymphocytes % Monocytes % Eosinophils % Basophils % Nucleated RBC % PT with INR INR PTT (Actin FS) VBG pH POC VBG pCO2 POC VBG pO2 VBG HCO3 VBG O2 Sat (Patel) VBG Base Excess Sodium 143 Potassium 5.2 H Chloride 105 Carbon Dioxide 28 Anion Gap 10 BUN 80 H Creatinine 3.1 H Creat Clearance w eGFR 15.33 POC Glucometer Random Glucose 891 H* Lactic Acid 2.8 H* Calcium 10.1 Phosphorus Magnesium Total Bilirubin 0.5 AST 17 ALT 34 Alkaline Phosphatase 110 Troponin I 0.08 H Total Protein 8.5 H Albumin 4.5 Urine Color Urine Appearance Urine pH Ur Specific [place] Urine Protein Urine Glucose (UA) Urine Ketones Urine Blood Urine Nitrite Urine Bilirubin Urine Urobilinogen Ur Leukocyte Esterase Acetone, Qual 08/24/18 08/24/18 08/24/18 12:05 12:21 15:26 WBC RBC Hgb Hct MCV MCH MCHC RDW Plt Count MPV Absolute Neuts (auto) Neutrophils % Lymphocytes % Monocytes % Eosinophils % Basophils % Nucleated RBC % PT with INR INR PTT (Actin FS) VBG pH POC VBG pCO2 POC VBG pO2 VBG HCO3 VBG O2 Sat (Patel) VBG Base Excess Sodium Potassium Chloride Carbon Dioxide Anion Gap BUN Creatinine Creat Clearance w eGFR POC Glucometer > 600 > 600 Random Glucose Lactic Acid Calcium Phosphorus Magnesium Total Bilirubin AST ALT Alkaline Phosphatase Troponin I Total Protein Albumin Urine Color Urine Appearance Urine pH Ur Specific [place] Urine Protein Urine Glucose (UA) Urine Ketones Urine Blood Urine Nitrite Urine Bilirubin Urine Urobilinogen Ur Leukocyte Esterase Acetone, Qual Trace H 08/24/18 08/24/18 08/24/18 15:53 16:00 18:05 WBC RBC Hgb Hct MCV MCH MCHC RDW Plt Count MPV Absolute Neuts (auto) Neutrophils % Lymphocytes % Monocytes % Eosinophils % Basophils % Nucleated RBC % PT with INR INR PTT (Actin FS) VBG pH POC VBG pCO2 POC VBG pO2 VBG HCO3 VBG O2 Sat (Patel) VBG Base Excess Sodium 155 H Potassium 4.3 Chloride 122 H Carbon Dioxide 23 Anion Gap 10 BUN 74 H Creatinine 2.7 H Creat Clearance w eGFR 17.98 POC Glucometer 314 Random Glucose 584 H* Lactic Acid 3.0 H* Calcium 8.3 L Phosphorus Magnesium Total Bilirubin 0.3 AST 17 ALT 23 Alkaline Phosphatase 70 Troponin I Total Protein 5.5 L Albumin 2.9 L Urine Color Urine Appearance Urine pH Ur Specific [place] Urine Protein Urine Glucose (UA) Urine Ketones Urine Blood Urine Nitrite Urine Bilirubin Urine Urobilinogen Ur Leukocyte Esterase Acetone, Qual 08/24/18 08/24/18 08/24/18 21:20 21:25 22:15 WBC RBC Hgb Hct MCV MCH MCHC RDW Plt Count MPV Absolute Neuts (auto) Neutrophils % Lymphocytes % Monocytes % Eosinophils % Basophils % Nucleated RBC % PT with INR INR PTT (Actin FS) VBG pH POC VBG pCO2 POC VBG pO2 VBG HCO3 VBG O2 Sat (Patel) VBG Base Excess Sodium 159 H Potassium 4.3 Chloride 128 H Carbon Dioxide 21 Anion Gap 10 BUN 56 H Creatinine 1.9 H Creat Clearance w eGFR 26.96 POC Glucometer Random Glucose 358 H* Lactic Acid 2.6 H* Calcium 7.6 L Phosphorus Magnesium Total Bilirubin AST ALT Alkaline Phosphatase Troponin I Total Protein Albumin Urine Color Yellow Urine Appearance Clear Urine pH 5.0 Ur Specific [place] 1.017 Urine Protein Negative Urine Glucose (UA) 3+ H Urine Ketones Trace H Urine Blood Negative Urine Nitrite Negative Urine Bilirubin Negative Urine Urobilinogen 0.2 Ur Leukocyte Esterase Negative Acetone, Qual 08/25/18 08/25/18 08/25/18 00:26 00:30 02:42 WBC RBC Hgb Hct MCV MCH MCHC RDW Plt Count MPV Absolute Neuts (auto) Neutrophils % Lymphocytes % Monocytes % Eosinophils % Basophils % Nucleated RBC % PT with INR INR PTT (Actin FS) VBG pH POC VBG pCO2 POC VBG pO2 VBG HCO3 VBG O2 Sat (Patel) VBG Base Excess Sodium 158 H Potassium 4.2 Chloride 130 H Carbon Dioxide 23 Anion Gap 6 L BUN 48 H Creatinine 1.5 H Creat Clearance w eGFR 35.42 POC Glucometer 314 293 Random Glucose 360 H* Lactic Acid Calcium 7.8 L Phosphorus Magnesium Total Bilirubin AST ALT Alkaline Phosphatase Troponin I Total Protein Albumin Urine Color Urine Appearance Urine pH Ur Specific [place] Urine Protein Urine Glucose (UA) Urine Ketones Urine Blood Urine Nitrite Urine Bilirubin Urine Urobilinogen Ur Leukocyte Esterase Acetone, Qual 08/25/18 08/25/18 08/25/18 02:52 05:12 06:20 WBC RBC Hgb Hct MCV MCH MCHC RDW Plt Count MPV Absolute Neuts (auto) Neutrophils % Lymphocytes % Monocytes % Eosinophils % Basophils % Nucleated RBC % PT with INR INR PTT (Actin FS) VBG pH POC VBG pCO2 POC VBG pO2 VBG HCO3 VBG O2 Sat (Patel) VBG Base Excess Sodium 158 H 164 H* Potassium 4.1 3.9 Chloride 130 H 133 H Carbon Dioxide 23 25 Anion Gap 5 L 6 L BUN 45 H 38 H Creatinine 1.4 H 1.4 H Creat Clearance w eGFR 38.36 38.36 POC Glucometer 251 Random Glucose 366 H* 176 H Lactic Acid Calcium 7.7 L 8.2 L Phosphorus Magnesium Total Bilirubin AST ALT Alkaline Phosphatase Troponin I Total Protein Albumin Urine Color Urine Appearance Urine pH Ur Specific [place] Urine Protein Urine Glucose (UA) Urine Ketones Urine Blood Urine Nitrite Urine Bilirubin Urine Urobilinogen Ur Leukocyte Esterase Acetone, Qual 08/25/18 08/25/18 08/25/18 06:20 06:20 06:20 WBC 5.2 RBC 3.50 L Hgb 11.4 Hct 34.8 D MCV 99.4 H MCH 32.5 MCHC 32.7 RDW 17.7 H Plt Count 160 D MPV 8.9 Absolute Neuts (auto) 3.9 Neutrophils % 74.4 Lymphocytes % 22.8 D Monocytes % 2.5 L Eosinophils % 0.2 D Basophils % 0.1 Nucleated RBC % 0 PT with INR 11.80 INR 1.00 PTT (Actin FS) VBG pH POC VBG pCO2 POC VBG pO2 VBG HCO3 VBG O2 Sat (Patel) VBG Base Excess Sodium 164 H* Potassium 3.8 Chloride 133 H Carbon Dioxide 25 Anion Gap 6 L BUN 38 H Creatinine 1.4 H Creat Clearance w eGFR 38.36 POC Glucometer Random Glucose 169 H Lactic Acid Calcium 7.6 L Phosphorus 0.9 L* Magnesium 2.8 H Total Bilirubin 0.2 AST 17 ALT 26 Alkaline Phosphatase 63 Troponin I 0.15 H Total Protein 5.4 L Albumin 2.7 L Urine Color Urine Appearance Urine pH Ur Specific [place] Urine Protein Urine Glucose (UA) Urine Ketones Urine Blood Urine Nitrite Urine Bilirubin Urine Urobilinogen Ur Leukocyte Esterase Acetone, Qual 08/25/18 08/25/18 08/25/18 07:41 09:31 10:03 WBC RBC Hgb Hct MCV MCH MCHC RDW Plt Count MPV Absolute Neuts (auto) Neutrophils % Lymphocytes % Monocytes % Eosinophils % Basophils % Nucleated RBC % PT with INR INR PTT (Actin FS) VBG pH POC VBG pCO2 POC VBG pO2 VBG HCO3 VBG O2 Sat (Patel) VBG Base Excess Sodium 157 H Potassium 4.1 Chloride 129 H Carbon Dioxide 23 Anion Gap 5 L BUN 35 H Creatinine 1.1 Creat Clearance w eGFR 50.67 POC Glucometer 110 97 Random Glucose 226 H Lactic Acid Calcium 8.2 L Phosphorus Magnesium Total Bilirubin AST ALT Alkaline Phosphatase Troponin I Total Protein Albumin Urine Color Urine Appearance Urine pH Ur Specific [place] Urine Protein Urine Glucose (UA) Urine Ketones Urine Blood Urine Nitrite Urine Bilirubin Urine Urobilinogen Ur Leukocyte Esterase Acetone, Qual 08/25/18 08/25/18 10:30 11:13 WBC RBC Hgb Hct MCV MCH MCHC RDW Plt Count MPV Absolute Neuts (auto) Neutrophils % Lymphocytes % Monocytes % Eosinophils % Basophils % Nucleated RBC % PT with INR INR PTT (Actin FS) VBG pH POC VBG pCO2 POC VBG pO2 VBG HCO3 VBG O2 Sat (Patel) VBG Base Excess Sodium Potassium Chloride Carbon Dioxide Anion Gap BUN Creatinine Creat Clearance w eGFR POC Glucometer 137 164 Random Glucose Lactic Acid Calcium Phosphorus Magnesium Total Bilirubin AST ALT Alkaline Phosphatase Troponin I Total Protein Albumin Urine Color Urine Appearance Urine pH Ur Specific [place] Urine Protein Urine Glucose (UA) Urine Ketones Urine Blood Urine Nitrite Urine Bilirubin Urine Urobilinogen Ur Leukocyte Esterase Acetone, Qual Active Medications Generic Name Dose Route Start Last Admin Trade Name Nu PRN Reason Stop Dose Admin Chlorhexidine Gluconate 1 applic 08/24/18 22:00 Hibiclens For Decolonization - TP HS SMILEY Heparin Sodium (Porcine) 5,000 unit 08/24/18 22:00 08/25/18 10:20 Heparin - SQ 5,000 unit BID SMILEY Administration Dextrose 1,000 mls @ 114 mls/hr 08/25/18 08:11 08/25/18 08:38 D5w - IV 114 mls/hr ASDIR SMILEY Administration Azithromycin 500 mg/ Dextrose 250 mls @ 250 mls/hr 08/25/18 11:00 IVPB DAILY SMILEY Ceftriaxone Sodium 2 gm/ 100 mls @ 100 mls/hr 08/25/18 11:00 Dextrose IVPB DAILY [facility] Protocol Insulin Aspart 1 vial 08/25/18 11:45 Novolog Vial Sliding Scale - SQ Q4H [facility] Protocol Mupirocin 1 applic 08/24/18 22:00 Bactroban Ointment (For Decolonization) - NS 08/29/18 21:59 BID SMILEY Mycophenolate Mofetil 500 mg 08/24/18 22:00 08/25/18 10:20 Cellcept - PO 500 mg BID SMILEY Administration Ondansetron HCl 4 mg 08/25/18 02:45 08/25/18 03:39 Zofran Injection IVPUSH 4 mg Q6H PRN Administration NAUSEA AND/OR VOMITING Prednisone 50 mg 08/25/18 10:00 08/25/18 10:20 Deltasone - PO 50 mg DAILY SMILEY Administration Valsartan 160 mg 08/25/18 10:00 08/25/18 10:20 Diovan - PO 160 mg DAILY SMILEY Administration ASSESSMENT/PLAN: The patient is a 62 yo f w/ PMH DM, HTN, ILD (on cellcept and transplant list) who was BIBEMS from home due to unresponsiveness and confusion found to be hyperglycemic with an SIGRID. #Neuro -mental status much improved today -no focal neurological deficits. #Endocrine -elevated blood glucose w/ normal pH and normal anion gap on presentation -most recent BGM 164, insulin GTT d/c -BGM changed to q4h, ISS q4h started -bmp q4h overnight, can deescalate to q6h -lactic acid downtrending -fluids changed to D5W@ 114 as sodium elevated -monitor K+ while on insulin #Pulmonary -crackles at base could be 2/2 underlying ILD vs infectious process -CXR w/ consolidation at left base. -ID onboard; on Rocephin and azithromycin -h/o ILD on cellcept and oral prednisone -c/w cellcept, prednisone #cardiac -continue home Benicar for BP control #FEN -D5W @ 114 -monitor lytes, replete PRN -diabetic diet #Prophy -heparin SQ 5k units Q8H #Dispo -stable for transfer to med surg floor Visit type - Emergency Visit Emergency Visit: Yes ED Registration Date: 08/24/18 Care time: The patient presented to the Emergency Department on the above date and was hospitalized for further evaluation of their emergent condition. - New Patient This patient is new to me today: No - Critical Care Critical Care patient: Yes Total Critical Care Time (in minutes): 35 Critical Care Statement: The care of this patient involved high complexity decision making to prevent further life threatening deterioration of the patient 's condition and/or to evaluate & treat vital organ system(s) failure or risk of failure. - Discharge Referral Referred to [facility] No
--- NOTE | 2018-08-25 12:50 | PN ---
Teaching Attending Note Name of Resident: Lane Rodríguez ATTENDING PHYSICIAN STATEMENT I saw and evaluated the patient. I reviewed the resident's note and discussed the case with the resident. I agree with the resident's findings and plan as documented. SUBJECTIVE: Patient seen and examined in the ER. Awake and responsive today. Forgetful of the events over the weekend. No CP or SOB. Improved blood sugars. AG was never elevated. Elevated Osm likely related to ARF. Intake & Output 08/22/18 08/23/18 08/24/18 08/25/18 23:59 23:59 23:59 23:59 Weight 160 lb Last Vital Signs Temp Pulse Resp BP Pulse Ox 97.6 F 91 H 18 135/94 97 08/25/18 10:48 08/25/18 10:43 08/25/18 10:22 08/25/18 10:43 08/25/18 10:22 Active Medications Chlorhexidine Gluconate (Hibiclens For Decolonization -) 1 applic TP HS [facility] Heparin Sodium (Porcine) (Heparin -) 5,000 unit SQ BID [facility] Last Admin: 08/25/18 10:20 Dose: 5,000 unit Dextrose (D5w -) 1,000 mls @ 114 mls/hr IV ASDIR [facility] Last Admin: 08/25/18 08:38 Dose: 114 mls/hr Azithromycin 500 mg/ Dextrose 250 mls @ 250 mls/hr IVPB DAILY [facility] Last Admin: 08/25/18 12:04 Dose: 250 mls/hr Ceftriaxone Sodium 2 gm/ (Dextrose) 100 mls @ 100 mls/hr IVPB DAILY [facility]; Protocol Last Admin: 08/25/18 11:05 Dose: 100 mls/hr Insulin Aspart (Novolog Vial Sliding Scale -) 1 vial SQ Q4H [facility]; Protocol Mupirocin (Bactroban Ointment (For Decolonization) -) 1 applic NS BID [facility] Stop: 08/29/18 21:59 Mycophenolate Mofetil (Cellcept -) 500 mg PO BID [facility] Last Admin: 08/25/18 10:20 Dose: 500 mg Ondansetron HCl (Zofran Injection) 4 mg IVPUSH Q6H PRN PRN Reason: NAUSEA AND/OR VOMITING Last Admin: 08/25/18 03:39 Dose: 4 mg Prednisone (Deltasone -) 50 mg PO DAILY [facility] Last Admin: 08/25/18 10:20 Dose: 50 mg Valsartan (Diovan -) 160 mg PO DAILY [facility] Last Admin: 08/25/18 10:20 Dose: 160 mg GENERAL: awake, alert, no acute distress. HEAD: Normal with no signs of trauma. EYES: PERRL, extraocular movements intact, sclera anicteric, conjunctiva clear. No ptosis. LUNGS: Bibasilar crackles, Right > Left HEART: Regular rate and rhythm, S1, S2 without murmur, rub or gallop. ABDOMEN: Soft, nontender, nondistended, normoactive bowel sounds, no guarding, no rebound, no hepatosplenomegaly, no masses. EXTREMITIES: 2+ pulses, warm, well-perfused, no edema. NEUROLOGICAL: Non-focal SKIN: Warm, dry, normal turgor, no rashes or lesions noted Laboratory Results - last 24 hr 08/24/18 08/24/18 08/24/18 12:05 12:05 12:05 WBC 8.1 RBC 4.78 Hgb 15.1 Hct 48.3 H MCV 101.0 H MCH 31.7 MCHC 31.4 L RDW 17.4 H Plt Count 223 MPV 9.5 Absolute Neuts (auto) 7.3 Neutrophils % 90.5 H Lymphocytes % 7.1 L Monocytes % 2.2 L Eosinophils % 0.0 Basophils % 0.2 Nucleated RBC % 0 PT with INR 11.60 INR 0.98 PTT (Actin FS) 23.1 L VBG pH 7.31 POC VBG pCO2 51.0 POC VBG pO2 24.7 L VBG HCO3 24.7 VBG O2 Sat (Patel) 29.3 L VBG Base Excess -1.9 Sodium Potassium Chloride Carbon Dioxide Anion Gap BUN Creatinine Creat Clearance w eGFR POC Glucometer Random Glucose Lactic Acid Calcium Phosphorus Magnesium Total Bilirubin AST ALT Alkaline Phosphatase Troponin I Total Protein Albumin Urine Color Urine Appearance Urine pH Ur Specific Maybee Urine Protein Urine Glucose (UA) Urine Ketones Urine Blood Urine Nitrite Urine Bilirubin Urine Urobilinogen Ur Leukocyte Esterase Acetone, Qual 08/24/18 08/24/18 08/24/18 12:05 12:05 12:05 WBC RBC Hgb Hct MCV MCH MCHC RDW Plt Count MPV Absolute Neuts (auto) Neutrophils % Lymphocytes % Monocytes % Eosinophils % Basophils % Nucleated RBC % PT with INR INR PTT (Actin FS) VBG pH POC VBG pCO2 POC VBG pO2 VBG HCO3 VBG O2 Sat (Patel) VBG Base Excess Sodium 143 Potassium 5.2 H Chloride 105 Carbon Dioxide 28 Anion Gap 10 BUN 80 H Creatinine 3.1 H Creat Clearance w eGFR 15.33 POC Glucometer Random Glucose 891 H* Lactic Acid 2.8 H* Calcium 10.1 Phosphorus Magnesium Total Bilirubin 0.5 AST 17 ALT 34 Alkaline Phosphatase 110 Troponin I 0.08 H Total Protein 8.5 H Albumin 4.5 Urine Color Urine Appearance Urine pH Ur Specific Maybee Urine Protein Urine Glucose (UA) Urine Ketones Urine Blood Urine Nitrite Urine Bilirubin Urine Urobilinogen Ur Leukocyte Esterase Acetone, Qual 08/24/18 08/24/18 08/24/18 12:05 15:26 15:53 WBC RBC Hgb Hct MCV MCH MCHC RDW Plt Count MPV Absolute Neuts (auto) Neutrophils % Lymphocytes % Monocytes % Eosinophils % Basophils % Nucleated RBC % PT with INR INR PTT (Actin FS) VBG pH POC VBG pCO2 POC VBG pO2 VBG HCO3 VBG O2 Sat (Patel) VBG Base Excess Sodium Potassium Chloride Carbon Dioxide Anion Gap BUN Creatinine Creat Clearance w eGFR POC Glucometer > 600 Random Glucose Lactic Acid 3.0 H* Calcium Phosphorus Magnesium Total Bilirubin AST ALT Alkaline Phosphatase Troponin I Total Protein Albumin Urine Color Urine Appearance Urine pH Ur Specific Maybee Urine Protein Urine Glucose (UA) Urine Ketones Urine Blood Urine Nitrite Urine Bilirubin Urine Urobilinogen Ur Leukocyte Esterase Acetone, Qual Trace H 08/24/18 08/24/18 08/24/18 16:00 18:05 21:20 WBC RBC Hgb Hct MCV MCH MCHC RDW Plt Count MPV Absolute Neuts (auto) Neutrophils % Lymphocytes % Monocytes % Eosinophils % Basophils % Nucleated RBC % PT with INR INR PTT (Actin FS) VBG pH POC VBG pCO2 POC VBG pO2 VBG HCO3 VBG O2 Sat (Patel) VBG Base Excess Sodium 155 H 159 H Potassium 4.3 4.3 Chloride 122 H 128 H Carbon Dioxide 23 21 Anion Gap 10 10 BUN 74 H 56 H Creatinine 2.7 H 1.9 H Creat Clearance w eGFR 17.98 26.96 POC Glucometer 314 Random Glucose 584 H* 358 H* Lactic Acid Calcium 8.3 L 7.6 L Phosphorus Magnesium Total Bilirubin 0.3 AST 17 ALT 23 Alkaline Phosphatase 70 Troponin I Total Protein 5.5 L Albumin 2.9 L Urine Color Urine Appearance Urine pH Ur Specific Maybee Urine Protein Urine Glucose (UA) Urine Ketones Urine Blood Urine Nitrite Urine Bilirubin Urine Urobilinogen Ur Leukocyte Esterase Acetone, Qual 08/24/18 08/24/18 08/25/18 21:25 22:15 00:26 WBC RBC Hgb Hct MCV MCH MCHC RDW Plt Count MPV Absolute Neuts (auto) Neutrophils % Lymphocytes % Monocytes % Eosinophils % Basophils % Nucleated RBC % PT with INR INR PTT (Actin FS) VBG pH POC VBG pCO2 POC VBG pO2 VBG HCO3 VBG O2 Sat (Patel) VBG Base Excess Sodium 158 H Potassium 4.2 Chloride 130 H Carbon Dioxide 23 Anion Gap 6 L BUN 48 H Creatinine 1.5 H Creat Clearance w eGFR 35.42 POC Glucometer Random Glucose 360 H* Lactic Acid 2.6 H* Calcium 7.8 L Phosphorus Magnesium Total Bilirubin AST ALT Alkaline Phosphatase Troponin I Total Protein Albumin Urine Color Yellow Urine Appearance Clear Urine pH 5.0 Ur Specific Maybee 1.017 Urine Protein Negative Urine Glucose (UA) 3+ H Urine Ketones Trace H Urine Blood Negative Urine Nitrite Negative Urine Bilirubin Negative Urine Urobilinogen 0.2 Ur Leukocyte Esterase Negative Acetone, Qual 08/25/18 08/25/18 08/25/18 00:30 02:42 02:52 WBC RBC Hgb Hct MCV MCH MCHC RDW Plt Count MPV Absolute Neuts (auto) Neutrophils % Lymphocytes % Monocytes % Eosinophils % Basophils % Nucleated RBC % PT with INR INR PTT (Actin FS) VBG pH POC VBG pCO2 POC VBG pO2 VBG HCO3 VBG O2 Sat (Patel) VBG Base Excess Sodium 158 H Potassium 4.1 Chloride 130 H Carbon Dioxide 23 Anion Gap 5 L BUN 45 H Creatinine 1.4 H Creat Clearance w eGFR 38.36 POC Glucometer 314 293 Random Glucose 366 H* Lactic Acid Calcium 7.7 L Phosphorus Magnesium Total Bilirubin AST ALT Alkaline Phosphatase Troponin I Total Protein Albumin Urine Color Urine Appearance Urine pH Ur Specific Maybee Urine Protein Urine Glucose (UA) Urine Ketones Urine Blood Urine Nitrite Urine Bilirubin Urine Urobilinogen Ur Leukocyte Esterase Acetone, Qual 08/25/18 08/25/18 08/25/18 05:12 06:20 06:20 WBC 5.2 RBC 3.50 L Hgb 11.4 Hct 34.8 D MCV 99.4 H MCH 32.5 MCHC 32.7 RDW 17.7 H Plt Count 160 D MPV 8.9 Absolute Neuts (auto) 3.9 Neutrophils % 74.4 Lymphocytes % 22.8 D Monocytes % 2.5 L Eosinophils % 0.2 D Basophils % 0.1 Nucleated RBC % 0 PT with INR INR PTT (Actin FS) VBG pH POC VBG pCO2 POC VBG pO2 VBG HCO3 VBG O2 Sat (Patel) VBG Base Excess Sodium 164 H* Potassium 3.9 Chloride 133 H Carbon Dioxide 25 Anion Gap 6 L BUN 38 H Creatinine 1.4 H Creat Clearance w eGFR 38.36 POC Glucometer 251 Random Glucose 176 H Lactic Acid Calcium 8.2 L Phosphorus Magnesium Total Bilirubin AST ALT Alkaline Phosphatase Troponin I Total Protein Albumin Urine Color Urine Appearance Urine pH Ur Specific Maybee Urine Protein Urine Glucose (UA) Urine Ketones Urine Blood Urine Nitrite Urine Bilirubin Urine Urobilinogen Ur Leukocyte Esterase Acetone, Qual 08/25/18 08/25/18 08/25/18 06:20 06:20 07:41 WBC RBC Hgb Hct MCV MCH MCHC RDW Plt Count MPV Absolute Neuts (auto) Neutrophils % Lymphocytes % Monocytes % Eosinophils % Basophils % Nucleated RBC % PT with INR 11.80 INR 1.00 PTT (Actin FS) VBG pH POC VBG pCO2 POC VBG pO2 VBG HCO3 VBG O2 Sat (Patel) VBG Base Excess Sodium 164 H* Potassium 3.8 Chloride 133 H Carbon Dioxide 25 Anion Gap 6 L BUN 38 H Creatinine 1.4 H Creat Clearance w eGFR 38.36 POC Glucometer 110 Random Glucose 169 H Lactic Acid Calcium 7.6 L Phosphorus 0.9 L* Magnesium 2.8 H Total Bilirubin 0.2 AST 17 ALT 26 Alkaline Phosphatase 63 Troponin I 0.15 H Total Protein 5.4 L Albumin 2.7 L Urine Color Urine Appearance Urine pH Ur Specific Maybee Urine Protein Urine Glucose (UA) Urine Ketones Urine Blood Urine Nitrite Urine Bilirubin Urine Urobilinogen Ur Leukocyte Esterase Acetone, Qual 08/25/18 08/25/18 08/25/18 09:31 10:03 10:30 WBC RBC Hgb Hct MCV MCH MCHC RDW Plt Count MPV Absolute Neuts (auto) Neutrophils % Lymphocytes % Monocytes % Eosinophils % Basophils % Nucleated RBC % PT with INR INR PTT (Actin FS) VBG pH POC VBG pCO2 POC VBG pO2 VBG HCO3 VBG O2 Sat (Patel) VBG Base Excess Sodium 157 H Potassium 4.1 Chloride 129 H Carbon Dioxide 23 Anion Gap 5 L BUN 35 H Creatinine 1.1 Creat Clearance w eGFR 50.67 POC Glucometer 97 137 Random Glucose 226 H Lactic Acid Calcium 8.2 L Phosphorus Magnesium Total Bilirubin AST ALT Alkaline Phosphatase Troponin I Total Protein Albumin Urine Color Urine Appearance Urine pH Ur Specific Maybee Urine Protein Urine Glucose (UA) Urine Ketones Urine Blood Urine Nitrite Urine Bilirubin Urine Urobilinogen Ur Leukocyte Esterase Acetone, Qual 08/25/18 11:13 WBC RBC Hgb Hct MCV MCH MCHC RDW Plt Count MPV Absolute Neuts (auto) Neutrophils % Lymphocytes % Monocytes % Eosinophils % Basophils % Nucleated RBC % PT with INR INR PTT (Actin FS) VBG pH POC VBG pCO2 POC VBG pO2 VBG HCO3 VBG O2 Sat (Patel) VBG Base Excess Sodium Potassium Chloride Carbon Dioxide Anion Gap BUN Creatinine Creat Clearance w eGFR POC Glucometer 164 Random Glucose Lactic Acid Calcium Phosphorus Magnesium Total Bilirubin AST ALT Alkaline Phosphatase Troponin I Total Protein Albumin Urine Color Urine Appearance Urine pH Ur Specific Maybee Urine Protein Urine Glucose (UA) Urine Ketones Urine Blood Urine Nitrite Urine Bilirubin Urine Urobilinogen Ur Leukocyte Esterase Acetone, Qual ASSESSMENT/PLAN: Resolved Hyperglycemia Resolved ARF AMS improving DM HTN History of ILD on cellcept/high dose Prednisone and apparently on a transplant list R/O PNA: low clinical suspicion Glycemic control with SQ Insulin Need to confirm patient's medications with [facility] IVF PO as tolerated VTE prophylaxis ABX per ID No need for ICU monitoring at this time, please call for any changes in patient status Dr Aponte
[2018-08-25] MEDS ORDERED: INSULIN REGULAR HUMAN 100 UNITS/ML *VIAL ONE (13:59)
--- NOTE | 2018-08-25 14:22 | CONSULT ---
Consult Consult Specialty:: Endocrinology Referred by:: Dr Villatoro Reason for Consultation:: Hyperglycemia - History of Present Illness Chief Complaint: AMS History of Present Illness: This is a 62 y/o f with h/o DM secondary to steroid for about 3 months, HTN, ILD (on cellcept and Prednisone and transplant list) who was BIBEMS from home due to unresponsiveness and confusion. The patient left work Friday stating that she "did not feel good" and felt nauseous. From that point, the patient was not heard from over the weekend. She did not answer her coworker's phone calls on Friday. When the patient did not show up for work on Friday, her coworkers called EMS to find her. On arrival, EMS found her to be minimally responsive and confused. she was started on a 500ml bolus and brought into the ED. In the ED, she was found to have a blood glucose of 891 on BMP with a lactic acidosis and normal pH. She received .1u/kg IVP regular insulin followed by .1u/kg Insulin GTT. also received a total of 3L bolus Most BGM read >600. CXR shows possible left base pleural effusion vs. infiltrate. No fevers while in ED. Pt currently awake, alert and doesn't recall what happened at her home. - History Source History Provided By: Patient, Friend, Medical Record - Past Medical History Cardio/Vascular: Yes: HTN, Hyperlipdemia Endocrine: Yes: Diabetes Mellitus - Alcohol/Substance Use Hx Alcohol Use: No - Smoking History Smoking history: Unknown if ever smoked Have you smoked in the past 12 months: No Home Medications - Allergies Allergies/Adverse Reactions: Allergies Allergy/AdvReac Type Severity Reaction Status Date / Time No Known Allergies Allergy Verified 08/24/18 11:29 - Home Medications Home Medications: Ambulatory Orders Atorvastatin Calcium 10 mg PO DAILY 08/24/18 Cholecalciferol (Vitamin D3) [Vitamin D3] 800 unit PO DAILY 08/24/18 Metformin HCl [Glucophage] 500 mg PO BID 08/24/18 Mycophenolate Mofetil [Cellcept] 500 mg PO BID 08/24/18 Olmesartan Medoxomil [Benicar (Nf)] 20 mg PO DAILY 08/24/18 Pantoprazole Sodium 40 mg PO DAILY 08/24/18 Prednisone [Prednisone 50 MG TABLETS] 50 mg PO DAILY 08/24/18 Review of Systems - Review of Systems Constitutional: reports: No Symptoms Eyes: reports: No Symptoms HENT: reports: No Symptoms Neck: reports: No Symptoms Cardiovascular: reports: No Symptoms Respiratory: reports: No Symptoms Gastrointestinal: reports: No Symptoms Genitourinary: reports: No Symptoms Musculoskeletal: reports: No Symptoms Integumentary: reports: No Symptoms Neurological: reports: No Symptoms Endocrine: reports: No Symptoms Hematology/Lymphatic: reports: No Symptoms Physical Exam Vital Signs: Vital Signs Temperature 97.6 F 08/25/18 10:48 Pulse Rate 91 H 08/25/18 10:43 Respiratory Rate 18 08/25/18 10:22 Blood Pressure 135/94 08/25/18 10:43 O2 Sat by Pulse Oximetry (%) 97 08/25/18 10:22 Constitutional: Yes: No Distress, Calm Eyes: Yes: Conjunctiva Clear, EOM Intact HENT: Yes: Atraumatic, Normocephalic Neck: Yes: Supple, Trachea Midline Cardiovascular: Yes: Regular Rate and Rhythm Respiratory: Yes: Regular, Other (Basal crackles Rt >left) Labs: CBC, BMP 08/25/18 06:20 Imaging - Results Chest X-ray: Report Reviewed Cat Scan: Report Reviewed Assessment/Plan AP: Hyperglycemic Hyperosmolar state: Resolved S Osm calcualted 364 Treated with IV hydration, IV Insulin and electrolytes DM probably secondary to Steroids Interstitial lung Disease: On Cellcept and Prednisone 50mg Daily On Transplant list IV hydration BGM Q 4 hrs Novolog ss coverage Will hold long acting Insulin for now as pt's blood sugar usually in the low 100s as per pt. 1/2 NS at 75 CC/hr Kphos 15mmol IVPB over 4 hrs Labs in AM Will f/u
--- NOTE | 2018-08-25 14:24 | EKG ---
Test Reason : Blood Pressure : / mmHG Vent. Rate : 110 BPM Atrial Rate : 110 BPM P-R Int : 116 ms QRS Dur : 082 ms QT Int : 324 ms P-R-T Axes : 025 -38 039 degrees QTc Int : 438 ms SINUS TACHYCARDIA LEFT AXIS DEVIATION ABNORMAL ECG NO PREVIOUS ECGS AVAILABLE Confirmed by MD Nighat, Cornel ([id number]) on 08/25/2018 2:23:52 PM Referred By: Confirmed By:Cornel Disla MD
[2018-08-25 14:28] LABS: ANION GAP 6 MMOL/L (8-16); BLOOD UREA NITROGEN 30 mg/dL (7-18); CALCIUM 7.8 mg/dL (8.5-10.1); CHLORIDE 125 mmol/L (98-107); CO2 23 mmol/L (21-32); CREATININE 1.2 mg/dL (0.55-1.3); POTASSIUM 4.6 mmol/L (3.5-5.1); SODIUM 154 mmol/L (136-145)
[2018-08-25 14:34] LABS: GLUCOSE,RANDOM 416 mg/dL (74-106)
[2018-08-25] MEDS ORDERED: SODIUM CHLORIDE 1,000 ML IV SCH (16:45)
[2018-08-25] MEDS ORDERED: INSULIN (NOVOLOG) ASPART 100 UNITS/ML 10ML VIAL SQ ONE (16:45)
[2018-08-25] MEDS: MUPIROCIN 2% TOPICAL OINTMENT FOR DECOLONIZATION NS SCH (17:02)
--- NOTE | 2018-08-25 17:45 | PN ---
Progress Note, Physician History of Present Illness: feeling better - Current Medication List Current Medications: Active Medications Heparin Sodium (Porcine) (Heparin -) 5,000 unit SQ BID [facility] Last Admin: 08/25/18 10:20 Dose: 5,000 unit Azithromycin 500 mg/ Dextrose 250 mls @ 250 mls/hr IVPB DAILY [facility] Last Admin: 08/25/18 12:04 Dose: 250 mls/hr Ceftriaxone Sodium 2 gm/ (Dextrose) 100 mls @ 100 mls/hr IVPB DAILY [facility]; Protocol Last Admin: 08/25/18 11:05 Dose: 100 mls/hr Sodium Chloride (Normal Saline -) 1,000 mls @ 75 mls/hr IV ASDIR [facility] Last Admin: 08/25/18 16:58 Dose: 75 mls/hr Insulin Aspart (Novolog Vial Sliding Scale -) 1 vial SQ Q4H [facility]; Protocol Last Admin: 08/25/18 15:45 Dose: Not Given Mycophenolate Mofetil (Cellcept -) 500 mg PO BID [facility] Last Admin: 08/25/18 10:20 Dose: 500 mg Ondansetron HCl (Zofran Injection) 4 mg IVPUSH Q6H PRN PRN Reason: NAUSEA AND/OR VOMITING Last Admin: 08/25/18 03:39 Dose: 4 mg Prednisone (Deltasone -) 50 mg PO DAILY [facility] Last Admin: 08/25/18 10:20 Dose: 50 mg Valsartan (Diovan -) 160 mg PO DAILY [facility] Last Admin: 08/25/18 10:20 Dose: 160 mg - Objective Vital Signs: Vital Signs Temperature 97.6 F 08/25/18 10:48 Pulse Rate 89 08/25/18 15:38 Respiratory Rate 18 08/25/18 17:41 Blood Pressure 131/81 08/25/18 15:38 O2 Sat by Pulse Oximetry (%) 97 08/25/18 17:41 Constitutional: Yes: No Distress HENT: Yes: Atraumatic Neck: Yes: Supple Cardiovascular: Yes: Regular Rate and Rhythm Respiratory: Yes: CTA Bilaterally Gastrointestinal: Yes: Normal Bowel Sounds Extremities: Yes: WNL Neurological: Yes: Alert, Oriented Labs: CBC, BMP 08/25/18 06:20 08/25/18 13:38 INR, PTT INR 1.00 (0.83-1.09) 08/25/18 06:20 Problem List - Problems (1) Diabetes Assessment/Plan: on insulin and bgms on prednisone which could be the reason for high blood sugars endocrine on board Code(s): E11.9 - TYPE 2 DIABETES MELLITUS WITHOUT COMPLICATIONS (2) HTN (hypertension) Assessment/Plan: on meds Code(s): I10 - ESSENTIAL (PRIMARY) HYPERTENSION (3) HLD (hyperlipidemia) Code(s): E78.5 - HYPERLIPIDEMIA, UNSPECIFIED (4) Chronic hypoxemic respiratory failure Assessment/Plan: on oxygen Code(s): J96.11 - CHRONIC RESPIRATORY FAILURE WITH HYPOXIA (5) Interstitial lung disease Assessment/Plan: on prednisone continue other home meds Code(s): J84.9 - INTERSTITIAL PULMONARY DISEASE, UNSPECIFIED
[2018-08-25] MEDS ORDERED: POTASSIUM PHOSPHATE 15 MM in DEXTROSE 5%-WATER - 250 ML IVPB ONE (20:00)
[2018-08-25] MEDS ORDERED: SODIUM CHLORIDE 0.45% 1,000 ML IV SCH (20:00)
[2018-08-26] MEDS: INSULIN SLIDING SCALE (NOVOLOG) 1 VIAL SQ SCH ×6 (03:30→22:13)
[2018-08-26 08:18] LABS: ALBUMIN 2.4 g/dl (3.4-5.0); ALK PHOS 57 U/L (45-117); ANION GAP 7 MMOL/L (8-16); BILIRUBIN,TOTAL 0.4 mg/dL (0.2-1); BLOOD UREA NITROGEN 20 mg/dL (7-18); CALCIUM 7.6 mg/dL (8.5-10.1); CHLORIDE 124 mmol/L (98-107); CO2 25 mmol/L (21-32); GLUCOSE,RANDOM 181 mg/dL (74-106); MAGNESIUM 2.3 mg/dL (1.8-2.4); PHOSPHOROUS 1.8 mg/dL (2.5-4.9); POTASSIUM 3.9 mmol/L (3.5-5.1); SGOT/AST 21 U/L (15-37); SGPT/ALT 24 U/L (13-61); SODIUM 156 mmol/L (136-145); TOT PROT 5.1 g/dl (6.4-8.2)
--- NOTE | 2018-08-26 09:03 | PN ---
Progress Note (short form) - Note Progress Note: C/O scratchy throat Vital Signs Period Temp Pulse Resp BP Sys/Shultz Pulse Ox Last 24 Hr 97.6 F-98.6 F 74-105 18-18 95-135/66-94 97-98 PE: AOx3 Neck: Supple, No JVD HEENT: EOMI Lungs: Basal crackles CVS: s1S2 Abd: Benign Ext: No edema CMP Sodium 156 mmol/L (136-145) H 08/26/18 07:00 Potassium 3.9 mmol/L (3.5-5.1) 08/26/18 07:00 Chloride 124 mmol/L (98-107) H 08/26/18 07:00 Carbon Dioxide 25 mmol/L (21-32) 08/26/18 07:00 Anion Gap 7 MMOL/L (8-16) L 08/26/18 07:00 BUN 20 mg/dL (7-18) H 08/26/18 07:00 Creatinine 1.0 mg/dL (0.55-1.3) 08/26/18 07:00 Creat Clearance w eGFR 56.56 (>60) 08/26/18 07:00 POC Glucometer 211 UNITS (80-120) 08/26/18 05:02 Random Glucose 181 mg/dL (74-106) H 08/26/18 07:00 Lactic Acid 1.8 mmol/L (0.4-2.0) 08/25/18 20:10 Calcium 7.6 mg/dL (8.5-10.1) L 08/26/18 07:00 Phosphorus 1.8 mg/dL (2.5-4.9) L 08/26/18 07:00 Magnesium 2.3 mg/dL (1.8-2.4) 08/26/18 07:00 Total Bilirubin 0.4 mg/dL (0.2-1) 08/26/18 07:00 AST 21 U/L (15-37) 08/26/18 07:00 ALT 24 U/L (13-61) 08/26/18 07:00 Alkaline Phosphatase 57 U/L (45-117) 08/26/18 07:00 Troponin I 0.15 ng/ml (0.00-0.05) H 08/25/18 06:20 Total Protein 5.1 g/dl (6.4-8.2) L 08/26/18 07:00 Albumin 2.4 g/dl (3.4-5.0) L 08/26/18 07:00 Current Medications Generic Name Dose Route Start Last Admin Trade Name Freq PRN Reason Stop Dose Admin Heparin Sodium (Porcine) 5,000 unit 08/26/18 10:00 Heparin - SQ BID [facility] Sodium Chloride 1,000 mls @ 75 mls/hr 08/25/18 20:00 08/25/18 21:11 1/2 Normal Saline IV 75 mls/hr ASDIR [facility] Administration Azithromycin 500 mg in 250 mls @ 250 mls/hr 08/26/18 10:00 Zithromax 500mg Ivpb (Pre-Docked) IVPB DAILY [facility] Ceftriaxone Sodium 2 gm/ 100 mls @ 100 mls/hr 08/26/18 10:00 Dextrose IVPB DAILY [facility] Protocol Insulin Aspart 1 vial 08/25/18 22:00 08/26/18 05:21 Novolog Vial Sliding Scale - SQ 4 units Q4HWA [facility] Administration Protocol Mycophenolate Mofetil 500 mg 08/26/18 10:00 Cellcept - PO BID [facility] Ondansetron HCl 4 mg 08/26/18 00:41 Zofran Injection IVPUSH Q6H PRN NAUSEA AND/OR VOMITING Prednisone 50 mg 08/26/18 10:00 Deltasone - PO DAILY [facility] Valsartan 160 mg 08/26/18 10:00 Diovan - PO DAILY [facility] AP: Hyperglycemic Hyperosmolar state: Resolved S Osm on admission calcualted 364 Treated with IV hydration, IV Insulin and electrolytes DM probably secondary to Steroids Interstitial lung Disease: On Cellcept and Prednisone 50mg Daily On Transplant list IV hydration BGM Q ACHS Levemri 6 units stat and 8 units daily Novolog ss coverage Adjust Insulin dose as necessary Add Januvia 25mg QD I will be away until September 07. Dr Casarez is covering.
[2018-08-26] MEDS ORDERED: VALSARTAN 160 MG TABLET (UD) PO SCH (10:00)
[2018-08-26] MEDS ORDERED: MYCOPHENOLATE MOFETIL 500 MG TABLET PO SCH (10:00)
[2018-08-26] MEDS ORDERED: PT OWN MED DRAWER 7, Y5N ONE (10:55)
[2018-08-26] MEDS ORDERED: DEXTROSE 5%-WATER 100 ML IVPB ONE (10:56)
[2018-08-26] MEDS: predniSONE 20 MG TABLET (UD) PO SCH (11:02)
[2018-08-26] MEDS: HEPARIN NA (PORCINE) 5,000 UNITS/ML 1ML VIAL SQ SCH ×2 (11:05→22:12)
[2018-08-26] MEDS: CEFTRIAXONE 2 GM in DEXTROSE 5%-WATER 100 ML IVPB SCH (11:08)
[2018-08-26] MEDS: AZITHROMYCIN IVPB 500 MG/250 ML BAG IVPB SCH (11:09)
[2018-08-26] MEDS ORDERED: INSULIN (LEVEMIR) 100 UNITS/ML UNITS SQ ONE (11:30)
[2018-08-26] MEDS: ONDANSETRON 4 MG/2 ML VIAL IVPUSH PRN (11:57)
--- NOTE | 2018-08-26 13:59 | PN ---
Progress Note, Physician History of Present Illness: pulmonary alert,comfortable on nasal O2,O2 sat 92% ,--resp distress - Current Medication List Current Medications: Active Medications Heparin Sodium (Porcine) (Heparin -) 5,000 unit SQ BID [facility] Last Admin: 08/26/18 11:05 Dose: 5,000 unit Sodium Chloride (1/2 Normal Saline) 1,000 mls @ 75 mls/hr IV ASDIR [facility] Last Admin: 08/25/18 21:11 Dose: 75 mls/hr Azithromycin (Zithromax 500mg Ivpb (Pre-Docked)) 500 mg in 250 mls @ 250 mls/ hr IVPB DAILY [facility] Last Admin: 08/26/18 11:09 Dose: 250 mls/hr Ceftriaxone Sodium 2 gm/ (Dextrose) 100 mls @ 100 mls/hr IVPB DAILY [facility]; Protocol Last Admin: 08/26/18 11:08 Dose: 100 mls/hr Insulin Aspart (Novolog Vial Sliding Scale -) 1 vial SQ Q4HWA [facility]; Protocol Last Admin: 08/26/18 11:06 Dose: 2 units Insulin Detemir (Levemir Vial) 8 units SQ DAILY [facility] Mycophenolate Mofetil (Cellcept -) 500 mg PO BID [facility] Last Admin: 08/26/18 11:01 Dose: 500 mg Ondansetron HCl (Zofran Injection) 4 mg IVPUSH Q6H PRN PRN Reason: NAUSEA AND/OR VOMITING Last Admin: 08/26/18 11:57 Dose: 4 mg Prednisone (Deltasone -) 50 mg PO DAILY [facility] Last Admin: 08/26/18 11:02 Dose: 50 mg Sitagliptin Phosphate (Januvia -) 25 mg PO DAILY@0700 [facility] Valsartan (Diovan -) 160 mg PO DAILY [facility] Last Admin: 08/26/18 11:04 Dose: 160 mg - Objective Vital Signs: Vital Signs Temperature 98.4 F 08/26/18 10:24 Pulse Rate 75 08/26/18 06:00 Respiratory Rate 18 08/26/18 10:24 Blood Pressure 112/73 08/26/18 10:24 O2 Sat by Pulse Oximetry (%) 100 08/26/18 10:15 Constitutional: Yes: Well Nourished, Calm Eyes: Yes: WNL HENT: Yes: WNL Neck: Yes: WNL Cardiovascular: Yes: Regular Rate and Rhythm, S1, S2 Respiratory: Yes: Rales (bilateral crackles 1/3 up) Gastrointestinal: Yes: Normal Bowel Sounds, Soft Extremities: Yes: WNL Edema: No Labs: CBC, BMP 08/25/18 06:20 08/26/18 07:00 INR, PTT INR 1.00 (0.83-1.09) 08/25/18 06:20 Problem List - Problems (1) Interstitial lung disease Code(s): J84.9 - INTERSTITIAL PULMONARY DISEASE, UNSPECIFIED (2) Diabetes Code(s): E11.9 - TYPE 2 DIABETES MELLITUS WITHOUT COMPLICATIONS (3) HLD (hyperlipidemia) Code(s): E78.5 - HYPERLIPIDEMIA, UNSPECIFIED (4) HTN (hypertension) Code(s): I10 - ESSENTIAL (PRIMARY) HYPERTENSION (5) Chronic hypoxemic respiratory failure Code(s): J96.11 - CHRONIC RESPIRATORY FAILURE WITH HYPOXIA Assessment/Plan ASSESSMENT/PLAN: Resolved Hyperglycemia Resolved ARF AMS improving DM HTN ILD on cellcept/high dose Prednisone and apparently on a transplant list R/O PNA: low clinical suspicion Glycemic control with SQ Insulin IVF PO as tolerated VTE prophylaxis ABX per ID DR FLORES
--- NOTE | 2018-08-26 14:29 | PN ---
Progress Note, Physician History of Present Illness: stable c/o of throat pain - Current Medication List Current Medications: Active Medications Heparin Sodium (Porcine) (Heparin -) 5,000 unit SQ BID [facility] Last Admin: 08/26/18 11:05 Dose: 5,000 unit Sodium Chloride (1/2 Normal Saline) 1,000 mls @ 75 mls/hr IV ASDIR [facility] Last Admin: 08/25/18 21:11 Dose: 75 mls/hr Azithromycin (Zithromax 500mg Ivpb (Pre-Docked)) 500 mg in 250 mls @ 250 mls/ hr IVPB DAILY [facility] Last Admin: 08/26/18 11:09 Dose: 250 mls/hr Ceftriaxone Sodium 2 gm/ (Dextrose) 100 mls @ 100 mls/hr IVPB DAILY [facility]; Protocol Last Admin: 08/26/18 11:08 Dose: 100 mls/hr Insulin Aspart (Novolog Vial Sliding Scale -) 1 vial SQ Q4HWA [facility]; Protocol Last Admin: 08/26/18 11:06 Dose: 2 units Insulin Detemir (Levemir Vial) 8 units SQ DAILY [facility] Mycophenolate Mofetil (Cellcept -) 500 mg PO BID [facility] Last Admin: 08/26/18 11:01 Dose: 500 mg Ondansetron HCl (Zofran Injection) 4 mg IVPUSH Q6H PRN PRN Reason: NAUSEA AND/OR VOMITING Last Admin: 08/26/18 11:57 Dose: 4 mg Prednisone (Deltasone -) 50 mg PO DAILY [facility] Last Admin: 08/26/18 11:02 Dose: 50 mg Sitagliptin Phosphate (Januvia -) 25 mg PO DAILY@0700 [facility] Valsartan (Diovan -) 160 mg PO DAILY [facility] Last Admin: 08/26/18 11:04 Dose: 160 mg - Objective Vital Signs: Vital Signs Temperature 98.0 F 08/26/18 13:52 Pulse Rate 99 H 08/26/18 13:52 Respiratory Rate 22 H 08/26/18 13:52 Blood Pressure 112/79 08/26/18 13:52 O2 Sat by Pulse Oximetry (%) 100 08/26/18 10:15 Constitutional: Yes: No Distress, Calm Cardiovascular: Yes: Regular Rate and Rhythm Respiratory: Yes: Regular, CTA Bilaterally Gastrointestinal: Yes: Normal Bowel Sounds, Soft Musculoskeletal: Yes: WNL Extremities: Yes: WNL Neurological: Yes: Alert Psychiatric: Yes: Alert, Oriented Labs: CBC, BMP 08/25/18 06:20 08/26/18 07:00 INR, PTT INR 1.00 (0.83-1.09) 08/25/18 06:20 Assessment/Plan Problem List - Problems (1) Interstitial lung disease Code(s): J84.9 - INTERSTITIAL PULMONARY DISEASE, UNSPECIFIED (2) Diabetes Code(s): E11.9 - TYPE 2 DIABETES MELLITUS WITHOUT COMPLICATIONS (3) HLD (hyperlipidemia) Code(s): E78.5 - HYPERLIPIDEMIA, UNSPECIFIED (4) HTN (hypertension) Code(s): I10 - ESSENTIAL (PRIMARY) HYPERTENSION (5) Chronic hypoxemic respiratory failure Code(s): J96.11 - CHRONIC RESPIRATORY FAILURE WITH HYPOXIA Assessment/Plan ASSESSMENT/PLAN: Resolved Hyperglycemia Resolved ARF AMS improving DM HTN ILD on cellcept/high dose Prednisone and apparently on a transplant list R/O PNA: low clinical suspicion plan continue abx rest as per the team patient improving
[2018-08-26] MEDS ORDERED: INSULIN (NOVOLOG) ASPART 100 UNITS/ML 10ML VIAL ONE (14:51)
--- NOTE | 2018-08-26 16:25 | PN ---
Progress Note, Physician History of Present Illness: feeling better - Current Medication List Current Medications: Active Medications Heparin Sodium (Porcine) (Heparin -) 5,000 unit SQ BID [facility] Last Admin: 08/26/18 11:05 Dose: 5,000 unit Sodium Chloride (1/2 Normal Saline) 1,000 mls @ 75 mls/hr IV ASDIR [facility] Last Admin: 08/25/18 21:11 Dose: 75 mls/hr Azithromycin (Zithromax 500mg Ivpb (Pre-Docked)) 500 mg in 250 mls @ 250 mls/ hr IVPB DAILY [facility] Last Admin: 08/26/18 11:09 Dose: 250 mls/hr Ceftriaxone Sodium 2 gm/ (Dextrose) 100 mls @ 100 mls/hr IVPB DAILY [facility]; Protocol Last Admin: 08/26/18 11:08 Dose: 100 mls/hr Insulin Aspart (Novolog Vial Sliding Scale -) 1 vial SQ Q4HWA [facility]; Protocol Last Admin: 08/26/18 15:02 Dose: 10 units Insulin Detemir (Levemir Vial) 8 units SQ DAILY [facility] Mycophenolate Mofetil (Cellcept -) 500 mg PO BID [facility] Last Admin: 08/26/18 11:01 Dose: 500 mg Ondansetron HCl (Zofran Injection) 4 mg IVPUSH Q6H PRN PRN Reason: NAUSEA AND/OR VOMITING Last Admin: 08/26/18 11:57 Dose: 4 mg Prednisone (Deltasone -) 50 mg PO DAILY [facility] Last Admin: 08/26/18 11:02 Dose: 50 mg Sitagliptin Phosphate (Januvia -) 25 mg PO DAILY@0700 [facility] Valsartan (Diovan -) 160 mg PO DAILY [facility] Last Admin: 08/26/18 11:04 Dose: 160 mg - Objective Vital Signs: Vital Signs Temperature 98.0 F 08/26/18 13:52 Pulse Rate 99 H 08/26/18 13:52 Respiratory Rate 22 H 08/26/18 13:52 Blood Pressure 112/79 08/26/18 13:52 O2 Sat by Pulse Oximetry (%) 100 08/26/18 10:15 Constitutional: Yes: No Distress HENT: Yes: Atraumatic Neck: Yes: Supple Cardiovascular: Yes: Regular Rate and Rhythm Respiratory: Yes: CTA Bilaterally Gastrointestinal: Yes: Normal Bowel Sounds Extremities: Yes: WNL Edema: No Peripheral Pulses WNL: Yes Neurological: Yes: Alert, Oriented Labs: CBC, BMP 08/25/18 06:20 08/26/18 07:00 INR, PTT INR 1.00 (0.83-1.09) 08/25/18 06:20 Problem List - Problems (1) Diabetes Assessment/Plan: on insulin and bgms endocrine on board Code(s): E11.9 - TYPE 2 DIABETES MELLITUS WITHOUT COMPLICATIONS (2) HTN (hypertension) Assessment/Plan: on meds Code(s): I10 - ESSENTIAL (PRIMARY) HYPERTENSION (3) HLD (hyperlipidemia) Code(s): E78.5 - HYPERLIPIDEMIA, UNSPECIFIED (4) Chronic hypoxemic respiratory failure Code(s): J96.11 - CHRONIC RESPIRATORY FAILURE WITH HYPOXIA (5) Interstitial lung disease Assessment/Plan: on prednisone continue other home meds Code(s): J84.9 - INTERSTITIAL PULMONARY DISEASE, UNSPECIFIED (6) Sore throat Assessment/Plan: swab sent on abx Code(s): J02.9 - ACUTE PHARYNGITIS, UNSPECIFIED
[2018-08-26] MEDS ORDERED: metFORMIN HCL 500 MG TABLET (FP) PO SCH (16:30)
[2018-08-26 16:42] VITALS: BMI 23.8
[2018-08-26] MEDS: MYCOPHENOLATE MOFETIL 500 MG TABLET PO SCH (22:12)
[2018-08-26] MEDS: CHOLECALCIFEROL (VITAMIN D3) 400 UNIT TABLET (FP) PO SCH (22:12)
[2018-08-27] MEDS: INSULIN SLIDING SCALE (NOVOLOG) 1 VIAL SQ SCH ×5 (06:47→23:15)
[2018-08-27] MEDS: sitaGLIPtin PHOSPHATE 25 MG TABLET (FP) PO SCH (06:47)
[2018-08-27] MEDS ORDERED: metFORMIN HCL 500 MG TABLET (FP) PO SCH (07:00)
[2018-08-27] MEDS ORDERED: INSULIN (LEVEMIR) 100 UNITS/ML UNITS SQ SCH (10:00)
[2018-08-27] MEDS ORDERED: DEXTROSE 5%-WATER 100 ML IVPB ONE (10:17)
[2018-08-27] MEDS ORDERED: PT OWN MED DRAWER 7, Y5N ONE ×3 (10:17→22:43)
[2018-08-27] MEDS ORDERED: INSULIN (NOVOLOG) ASPART 100 UNITS/ML 10ML VIAL ONE ×2 (10:18→19:40)
[2018-08-27] MEDS: CEFTRIAXONE 2 GM in DEXTROSE 5%-WATER 100 ML IVPB SCH (10:35)
[2018-08-27] MEDS: CHOLECALCIFEROL (VITAMIN D3) 400 UNIT TABLET (FP) PO SCH (10:37)
[2018-08-27] MEDS: PANTOPRAZOLE 40 MG TABLET (FP) PO SCH (10:37)
[2018-08-27] MEDS: predniSONE 20 MG TABLET (UD) PO SCH (10:37)
[2018-08-27] MEDS: MYCOPHENOLATE MOFETIL 500 MG TABLET PO SCH ×2 (10:38→23:11)
[2018-08-27] MEDS: HEPARIN NA (PORCINE) 5,000 UNITS/ML 1ML VIAL SQ SCH ×2 (10:38→23:11)
[2018-08-27] MEDS: ONDANSETRON 4 MG/2 ML VIAL IVPUSH PRN (10:52)
--- NOTE | 2018-08-27 11:15 | PN ---
Progress Note (short form) - Note Progress Note: PULMONARY States breathing is improving. No fevers or chills. +nonproductive cough. Vital Signs Period Temp Pulse Resp BP Sys/Shultz Pulse Ox Last 24 Hr 98.0 F-98.5 F 76-99 20-22 110-122/68-83 100 Gen: NAD at rest Heart: RRR Lung: decreased breath sounds at the bases Abd: soft, nontender Ext: no edema CBC, BMP 08/25/18 06:20 08/26/18 07:00 Active Medications Cholecalciferol (Vitamin D3 -) 800 unit PO DAILY [facility] Last Admin: 08/27/18 10:37 Dose: 800 unit Heparin Sodium (Porcine) (Heparin -) 5,000 unit SQ BID [facility] Last Admin: 08/27/18 10:38 Dose: 5,000 unit Azithromycin (Zithromax 500mg Ivpb (Pre-Docked)) 500 mg in 250 mls @ 250 mls/ hr IVPB DAILY [facility] Last Admin: 08/26/18 11:09 Dose: 250 mls/hr Ceftriaxone Sodium 2 gm/ (Dextrose) 100 mls @ 100 mls/hr IVPB DAILY [facility]; Protocol Last Admin: 08/27/18 10:35 Dose: 100 mls/hr Insulin Aspart (Novolog Vial Sliding Scale -) 1 vial SQ Q4HWA [facility]; Protocol Last Admin: 08/27/18 10:36 Dose: 4 units Insulin Detemir (Levemir Vial) 8 units SQ DAILY [facility] Last Admin: 08/27/18 10:37 Dose: 8 units Metformin HCl (Glucophage -) 500 mg PO BIDAC [facility] Mycophenolate Mofetil (Cellcept -) 1,500 mg PO BID [facility] Last Admin: 08/27/18 10:38 Dose: 1,500 mg Ondansetron HCl (Zofran Injection) 4 mg IVPUSH Q6H PRN PRN Reason: NAUSEA AND/OR VOMITING Last Admin: 08/27/18 10:52 Dose: 4 mg Pantoprazole Sodium (Protonix -) 40 mg PO DAILY [facility] Last Admin: 08/27/18 10:37 Dose: 40 mg Prednisone (Deltasone -) 50 mg PO DAILY [facility] Last Admin: 08/27/18 10:37 Dose: 50 mg Sitagliptin Phosphate (Januvia -) 25 mg PO DAILY@0700 [facility] Last Admin: 08/27/18 06:47 Dose: 25 mg A/P Hyperglycemia improving Acute Kidney Injury improving DM HTN Interstitial Lung Disease r/o Pneumonia - antibiotics per ID - continue home dose of cellcept, prednisone - O2 to keep SpO2 >90% - pt has outpt f/u with pulmonary clinic at [facility] later this month - DVT prophylaxis
[2018-08-27] MEDS: AZITHROMYCIN IVPB 500 MG/250 ML BAG IVPB SCH (11:43)
--- NOTE | 2018-08-27 15:34 | PN ---
Progress Note, Physician History of Present Illness: patient stable throat much better still sore - Current Medication List Current Medications: Active Medications Cholecalciferol (Vitamin D3 -) 800 unit PO DAILY [facility] Last Admin: 08/27/18 10:37 Dose: 800 unit Heparin Sodium (Porcine) (Heparin -) 5,000 unit SQ BID [facility] Last Admin: 08/27/18 10:38 Dose: 5,000 unit Azithromycin (Zithromax 500mg Ivpb (Pre-Docked)) 500 mg in 250 mls @ 250 mls/ hr IVPB DAILY [facility] Last Admin: 08/27/18 11:43 Dose: 250 mls/hr Ceftriaxone Sodium 2 gm/ (Dextrose) 100 mls @ 100 mls/hr IVPB DAILY [facility]; Protocol Last Admin: 08/27/18 10:35 Dose: 100 mls/hr Insulin Aspart (Novolog Vial Sliding Scale -) 1 vial SQ Q4HWA [facility]; Protocol Last Admin: 08/27/18 14:50 Dose: 10 units Insulin Detemir (Levemir Vial) 8 units SQ DAILY [facility] Last Admin: 08/27/18 10:37 Dose: 8 units Metformin HCl (Glucophage -) 500 mg PO BIDAC [facility] Mycophenolate Mofetil (Cellcept -) 1,500 mg PO BID [facility] Last Admin: 08/27/18 10:38 Dose: 1,500 mg Ondansetron HCl (Zofran Injection) 4 mg IVPUSH Q6H PRN PRN Reason: NAUSEA AND/OR VOMITING Last Admin: 08/27/18 10:52 Dose: 4 mg Pantoprazole Sodium (Protonix -) 40 mg PO DAILY [facility] Last Admin: 08/27/18 10:37 Dose: 40 mg Prednisone (Deltasone -) 50 mg PO DAILY [facility] Last Admin: 08/27/18 10:37 Dose: 50 mg Sitagliptin Phosphate (Januvia -) 25 mg PO DAILY@0700 [facility] Last Admin: 08/27/18 06:47 Dose: 25 mg - Objective Vital Signs: Vital Signs Temperature 97.5 F L 08/27/18 14:13 Pulse Rate 103 H 08/27/18 14:13 Respiratory Rate 20 08/27/18 14:13 Blood Pressure 102/66 08/27/18 14:13 O2 Sat by Pulse Oximetry (%) 100 08/27/18 09:00 Constitutional: Yes: No Distress, Calm Cardiovascular: Yes: Regular Rate and Rhythm Respiratory: Yes: Regular, CTA Bilaterally Gastrointestinal: Yes: Normal Bowel Sounds, Soft Musculoskeletal: Yes: WNL Extremities: Yes: WNL Neurological: Yes: Alert, Oriented Psychiatric: Yes: Alert, Oriented Labs: CBC, BMP 08/25/18 06:20 08/26/18 07:00 INR, PTT INR 1.00 (0.83-1.09) 08/25/18 06:20 Assessment/Plan Problem List - Problems (1) Interstitial lung disease Code(s): J84.9 - INTERSTITIAL PULMONARY DISEASE, UNSPECIFIED (2) Diabetes Code(s): E11.9 - TYPE 2 DIABETES MELLITUS WITHOUT COMPLICATIONS (3) HLD (hyperlipidemia) Code(s): E78.5 - HYPERLIPIDEMIA, UNSPECIFIED (4) HTN (hypertension) Code(s): I10 - ESSENTIAL (PRIMARY) HYPERTENSION (5) Chronic hypoxemic respiratory failure Code(s): J96.11 - CHRONIC RESPIRATORY FAILURE WITH HYPOXIA Assessment/Plan ASSESSMENT/PLAN: Resolved Hyperglycemia Resolved ARF AMS improving DM HTN ILD on cellcept/high dose Prednisone and apparently on a transplant list R/O PNA: low clinical suspicion plan continue abx rest as per the team patient improving
--- NOTE | 2018-08-27 17:04 | PN ---
Progress Note, Physician History of Present Illness: feeling better - Current Medication List Current Medications: Active Medications Cholecalciferol (Vitamin D3 -) 800 unit PO DAILY [facility] Last Admin: 08/27/18 10:37 Dose: 800 unit Heparin Sodium (Porcine) (Heparin -) 5,000 unit SQ BID [facility] Last Admin: 08/27/18 10:38 Dose: 5,000 unit Azithromycin (Zithromax 500mg Ivpb (Pre-Docked)) 500 mg in 250 mls @ 250 mls/ hr IVPB DAILY [facility] Last Admin: 08/27/18 11:43 Dose: 250 mls/hr Ceftriaxone Sodium 2 gm/ (Dextrose) 100 mls @ 100 mls/hr IVPB DAILY [facility]; Protocol Last Admin: 08/27/18 10:35 Dose: 100 mls/hr [facility]ulin [facility]art ([facility]iding [facility] -) [facility]; [facility] Last Admin: 08/27/18 14:50 Dose: 10 units Insulin Detemir (Levemir Vial) 8 units SQ DAILY@0700 [facility] Metformin HCl (Glucophage -) 500 mg PO BIDAC [facility] Mycophenolate Mofetil (Cellcept -) 1,500 mg PO BID [facility] Last Admin: 08/27/18 10:38 Dose: 1,500 mg Ondansetron HCl (Zofran Injection) 4 mg IVPUSH Q6H PRN PRN Reason: NAUSEA AND/OR VOMITING Last Admin: 08/27/18 10:52 Dose: 4 mg Pantoprazole Sodium (Protonix -) 40 mg PO DAILY [facility] Last Admin: 08/27/18 10:37 Dose: 40 mg Prednisone (Deltasone -) 50 mg PO DAILY [facility] Last Admin: 08/27/18 10:37 Dose: 50 mg Sitagliptin Phosphate (Januvia -) 25 mg PO DAILY@0700 [facility] Last Admin: 08/27/18 06:47 Dose: 25 mg - Objective Vital Signs: Vital Signs Temperature 97.5 F L 08/27/18 14:13 Pulse Rate 103 H 08/27/18 14:13 Respiratory Rate 20 08/27/18 14:13 Blood Pressure 102/66 08/27/18 14:13 O2 Sat by Pulse Oximetry (%) 100 08/27/18 09:00 Constitutional: Yes: No Distress HENT: Yes: Atraumatic Cardiovascular: Yes: Regular Rate and Rhythm Respiratory: Yes: CTA Bilaterally Gastrointestinal: Yes: Normal Bowel Sounds Extremities: Yes: WNL Edema: No Peripheral Pulses WNL: Yes Neurological: Yes: Alert, Oriented Labs: CBC, BMP 08/25/18 06:20 08/26/18 07:00 INR, PTT INR 1.00 (0.83-1.09) 08/25/18 06:20 Problem List - Problems (1) Diabetes Assessment/Plan: on insulin and bgms endocrine on board Code(s): E11.9 - TYPE 2 DIABETES MELLITUS WITHOUT COMPLICATIONS (2) HTN (hypertension) Assessment/Plan: on meds Code(s): I10 - ESSENTIAL (PRIMARY) HYPERTENSION (3) HLD (hyperlipidemia) Code(s): E78.5 - HYPERLIPIDEMIA, UNSPECIFIED (4) Chronic hypoxemic respiratory failure Assessment/Plan: on oxygen Code(s): J96.11 - CHRONIC RESPIRATORY FAILURE WITH HYPOXIA (5) Hyperglycemic hyperosmolar nonketotic coma Assessment/Plan: on ivf insulin drip Code(s): E11.01 - TYPE 2 DIABETES MELLITUS WITH HYPEROSMOLARITY WITH COMA (6) Interstitial lung disease Assessment/Plan: on prednisone continue other home meds Code(s): J84.9 - INTERSTITIAL PULMONARY DISEASE, UNSPECIFIED
[2018-08-27] MEDS ORDERED: INSULIN (LEVEMIR) 100 UNITS/ML UNITS SQ ONE (19:40)
[2018-08-28] MEDS: sitaGLIPtin PHOSPHATE 25 MG TABLET (FP) PO SCH (06:36)
[2018-08-28] MEDS: INSULIN SLIDING SCALE (NOVOLOG) 1 VIAL SQ SCH ×5 (06:36→21:19)
[2018-08-28] MEDS: INSULIN (LEVEMIR) 100 UNITS/ML UNITS SQ SCH (06:36)
[2018-08-28 08:12] LABS: ALBUMIN 2.2 g/dl (3.4-5.0); ALK PHOS 66 U/L (45-117); ANION GAP 5 MMOL/L (8-16); BILIRUBIN,TOTAL 0.5 mg/dL (0.2-1); BLOOD UREA NITROGEN 25 mg/dL (7-18); CALCIUM 8.6 mg/dL (8.5-10.1); CHLORIDE 109 mmol/L (98-107); CO2 26 mmol/L (21-32); CREATININE 0.8 mg/dL (0.55-1.3); GLUCOSE,RANDOM 248 mg/dL (74-106); POTASSIUM 3.8 mmol/L (3.5-5.1); SGOT/AST 23 U/L (15-37); SGPT/ALT 31 U/L (13-61); SODIUM 140 mmol/L (136-145)
[2018-08-28] MEDS ORDERED: INSULIN (NOVOLOG) ASPART 100 UNITS/ML 10ML VIAL ONE (09:35)
[2018-08-28] MEDS ORDERED: DEXTROSE 5%-WATER 100 ML IVPB ONE (09:36)
[2018-08-28] MEDS: CEFTRIAXONE 2 GM in DEXTROSE 5%-WATER 100 ML IVPB SCH (09:58)
[2018-08-28] MEDS: predniSONE 20 MG TABLET (UD) PO SCH (09:58)
[2018-08-28] MEDS: AZITHROMYCIN IVPB 500 MG/250 ML BAG IVPB SCH (09:58)
[2018-08-28] MEDS: HEPARIN NA (PORCINE) 5,000 UNITS/ML 1ML VIAL SQ SCH ×2 (09:59→21:23)
[2018-08-28] MEDS: PANTOPRAZOLE 40 MG TABLET (FP) PO SCH (09:59)
[2018-08-28] MEDS: CHOLECALCIFEROL (VITAMIN D3) 400 UNIT TABLET (FP) PO SCH (09:59)
[2018-08-28] MEDS: MYCOPHENOLATE MOFETIL 500 MG TABLET PO SCH ×2 (09:59→21:21)
[2018-08-28] MEDS: ONDANSETRON 4 MG/2 ML VIAL IVPUSH PRN (10:30)
--- NOTE | 2018-08-28 14:04 | PN ---
Progress Note, Physician History of Present Illness: patient doing well no new issues throat still hurting a bit walking with physio - Current Medication List Current Medications: Active Medications Cholecalciferol (Vitamin D3 -) 800 unit PO DAILY [facility] Last Admin: 08/28/18 09:59 Dose: 800 unit Heparin Sodium (Porcine) (Heparin -) 5,000 unit SQ BID [facility] Last Admin: 08/28/18 09:59 Dose: 5,000 unit Azithromycin (Zithromax 500mg Ivpb (Pre-Docked)) 500 mg in 250 mls @ 250 mls/ hr IVPB DAILY [facility] Last Admin: 08/28/18 09:58 Dose: 250 mls/hr Ceftriaxone Sodium 2 gm/ (Dextrose) 100 mls @ 100 mls/hr IVPB DAILY [facility]; Protocol Last Admin: 08/28/18 09:58 Dose: 100 mls/hr Insulin Aspart (Novolog Vial Sliding Scale -) 1 vial SQ Q4HWA [facility]; Protocol Last Admin: 08/28/18 09:59 Dose: 6 units Insulin Detemir (Levemir Vial) 8 units SQ DAILY@0700 [facility] Last Admin: 08/28/18 06:36 Dose: 8 units Mycophenolate Mofetil (Cellcept -) 1,500 mg PO BID [facility] Last Admin: 08/28/18 09:59 Dose: 1,500 mg Ondansetron HCl (Zofran Injection) 4 mg IVPUSH Q6H PRN PRN Reason: NAUSEA AND/OR VOMITING Last Admin: 08/28/18 10:30 Dose: 4 mg Pantoprazole Sodium (Protonix -) 40 mg PO DAILY [facility] Last Admin: 08/28/18 09:59 Dose: 40 mg Prednisone (Deltasone -) 50 mg PO DAILY [facility] Last Admin: 08/28/18 09:58 Dose: 50 mg Sitagliptin Phosphate (Januvia -) 25 mg PO DAILY@0700 [facility] Last Admin: 08/28/18 06:36 Dose: 25 mg - Objective Vital Signs: Vital Signs Temperature 98.6 F 08/28/18 10:00 Pulse Rate 86 08/28/18 10:00 Respiratory Rate 08/28/18 10:00 Blood Pressure 108/84 08/28/18 10:00 O2 Sat by Pulse Oximetry (%) 100 08/28/18 09:00 Constitutional: Yes: Calm Cardiovascular: Yes: Regular Rate and Rhythm Respiratory: Yes: Regular, CTA Bilaterally Gastrointestinal: Yes: Normal Bowel Sounds, Soft Musculoskeletal: Yes: WNL Extremities: Yes: WNL Neurological: Yes: Alert, Oriented Psychiatric: Yes: Alert, Oriented Labs: CBC, BMP 08/25/18 06:20 08/28/18 06:00 INR, PTT INR 1.00 (0.83-1.09) 08/25/18 06:20 Assessment/Plan Problem List - Problems (1) Interstitial lung disease Code(s): J84.9 - INTERSTITIAL PULMONARY DISEASE, UNSPECIFIED (2) Diabetes Code(s): E11.9 - TYPE 2 DIABETES MELLITUS WITHOUT COMPLICATIONS (3) HLD (hyperlipidemia) Code(s): E78.5 - HYPERLIPIDEMIA, UNSPECIFIED (4) HTN (hypertension) Code(s): I10 - ESSENTIAL (PRIMARY) HYPERTENSION (5) Chronic hypoxemic respiratory failure Code(s): J96.11 - CHRONIC RESPIRATORY FAILURE WITH HYPOXIA Assessment/Plan ASSESSMENT/PLAN: Resolved Hyperglycemia Resolved ARF AMS improving DM HTN ILD on cellcept/high dose Prednisone and apparently on a transplant list R/O PNA: low clinical suspicion plan continue abx rest as per the team patient improving will deescalate abx in a day or so
--- NOTE | 2018-08-28 14:15 | PN ---
Progress Note (short form) - Note Progress Note: Overall feels better. Walked with PT and felt some BURT. No CP. Some dry cough. Intake & Output 08/25/18 08/26/18 08/27/18 08/28/18 23:59 23:59 23:59 23:59 Intake Total 1100 2350 800 250 Balance 1100 2350 800 250 Weight 139 lb Last Vital Signs Temp Pulse Resp BP Pulse Ox 98.6 F 86 19 108/84 100 08/28/18 10:00 08/28/18 10:00 08/28/18 10:00 08/28/18 10:00 08/28/18 09:00 Active Medications Cholecalciferol (Vitamin D3 -) 800 unit PO DAILY [facility] Last Admin: 08/28/18 09:59 Dose: 800 unit Heparin Sodium (Porcine) (Heparin -) 5,000 unit SQ BID [facility] Last Admin: 08/28/18 09:59 Dose: 5,000 unit Azithromycin (Zithromax 500mg Ivpb (Pre-Docked)) 500 mg in 250 mls @ 250 mls/ hr IVPB DAILY [facility] Last Admin: 08/28/18 09:58 Dose: 250 mls/hr Ceftriaxone Sodium 2 gm/ (Dextrose) 100 mls @ 100 mls/hr IVPB DAILY [facility]; Protocol Last Admin: 08/28/18 09:58 Dose: 100 mls/hr Insulin Aspart (Novolog Vial Sliding Scale -) 1 vial SQ Q4HWA [facility]; Protocol Last Admin: 08/28/18 09:59 Dose: 6 units Insulin Detemir (Levemir Vial) 8 units SQ DAILY@0700 [facility] Last Admin: 08/28/18 06:36 Dose: 8 units Mycophenolate Mofetil (Cellcept -) 1,500 mg PO BID [facility] Last Admin: 08/28/18 09:59 Dose: 1,500 mg Ondansetron HCl (Zofran Injection) 4 mg IVPUSH Q6H PRN PRN Reason: NAUSEA AND/OR VOMITING Last Admin: 08/28/18 10:30 Dose: 4 mg Pantoprazole Sodium (Protonix -) 40 mg PO DAILY [facility] Last Admin: 08/28/18 09:59 Dose: 40 mg Prednisone (Deltasone -) 50 mg PO DAILY [facility] Last Admin: 08/28/18 09:58 Dose: 50 mg Sitagliptin Phosphate (Januvia -) 25 mg PO DAILY@0700 [facility] Last Admin: 08/28/18 06:36 Dose: 25 mg Gen: NAD at rest Heart: RRR Lung: decreased breath sounds at the bases, few scattered rhonchi Abd: soft, nontender Ext: no edema Laboratory Results - last 24 hr 08/27/18 08/27/18 08/27/18 14:46 17:29 23:14 Sodium Potassium Chloride Carbon Dioxide Anion Gap BUN Creatinine Creat Clearance w eGFR POC Glucometer 359 283 286 Random Glucose Calcium Total Bilirubin AST ALT Alkaline Phosphatase Total Protein Albumin 08/28/18 08/28/18 08/28/18 05:37 06:00 09:57 Sodium 140 Potassium 3.8 Chloride 109 H Carbon Dioxide 26 Anion Gap 5 L BUN 25 H Creatinine 0.8 Creat Clearance w eGFR 73.17 POC Glucometer 223 272 Random Glucose 248 H Calcium 8.6 Total Bilirubin 0.5 AST 23 ALT 31 Alkaline Phosphatase 66 Total Protein 5.0 L Albumin 2.2 L 08/28/18 11:59 Sodium Potassium Chloride Carbon Dioxide Anion Gap BUN Creatinine Creat Clearance w eGFR POC Glucometer 338 Random Glucose Calcium Total Bilirubin AST ALT Alkaline Phosphatase Total Protein Albumin A/P Hyperglycemia improving Acute Kidney Injury improving DM HTN Interstitial Lung Disease r/o Pneumonia - antibiotics per ID - continue home dose of cellcept, prednisone - O2 to keep SpO2 >90% - pt has outpt f/u with pulmonary clinic at [facility] later this month - DVT prophylaxis Dr Aponte
--- NOTE | 2018-08-28 20:14 | PN ---
Progress Note, Physician - Current Medication List Current Medications: Active Medications Cholecalciferol (Vitamin D3 -) 800 unit PO DAILY [facility] Last Admin: 08/28/18 09:59 Dose: 800 unit Heparin Sodium (Porcine) (Heparin -) 5,000 unit SQ BID [facility] Last Admin: 08/28/18 09:59 Dose: 5,000 unit Azithromycin (Zithromax 500mg Ivpb (Pre-Docked)) 500 mg in 250 mls @ 250 mls/ hr IVPB DAILY [facility] Last Admin: 08/28/18 09:58 Dose: 250 mls/hr Ceftriaxone Sodium 2 gm/ (Dextrose) 100 mls @ 100 mls/hr IVPB DAILY [facility]; Protocol Last Admin: 08/28/18 09:58 Dose: 100 mls/hr Insulin Aspart (Novolog Vial Sliding Scale -) 1 vial SQ Q4HWA [facility]; Protocol Last Admin: 08/28/18 18:27 Dose: 6 units Insulin Detemir (Levemir Vial) 8 units SQ DAILY@0700 [facility] Last Admin: 08/28/18 06:36 Dose: 8 units Mycophenolate Mofetil (Cellcept -) 1,500 mg PO BID [facility] Last Admin: 08/28/18 09:59 Dose: 1,500 mg Ondansetron HCl (Zofran Injection) 4 mg IVPUSH Q6H PRN PRN Reason: NAUSEA AND/OR VOMITING Last Admin: 08/28/18 10:30 Dose: 4 mg Pantoprazole Sodium (Protonix -) 40 mg PO DAILY [facility] Last Admin: 08/28/18 09:59 Dose: 40 mg Prednisone (Deltasone -) 50 mg PO DAILY [facility] Last Admin: 08/28/18 09:58 Dose: 50 mg Sitagliptin Phosphate (Januvia -) 25 mg PO DAILY@0700 [facility] Last Admin: 08/28/18 06:36 Dose: 25 mg - Objective Vital Signs: Vital Signs Temperature 98.4 F 08/28/18 18:00 Pulse Rate 79 08/28/18 18:00 Respiratory Rate 20 08/28/18 18:00 Blood Pressure 126/77 08/28/18 18:00 O2 Sat by Pulse Oximetry (%) 100 08/28/18 09:00 Constitutional: Yes: No Distress HENT: Yes: Atraumatic Neck: Yes: Supple Cardiovascular: Yes: Regular Rate and Rhythm Respiratory: Yes: CTA Bilaterally Gastrointestinal: Yes: Normal Bowel Sounds Genitourinary: Yes: Other (R labial boil) Extremities: Yes: WNL Neurological: Yes: Alert, Oriented Labs: CBC, BMP 08/25/18 06:20 08/28/18 06:00 INR, PTT INR 1.00 (0.83-1.09) 08/25/18 06:20 Problem List - Problems (1) Diabetes Assessment/Plan: on insulin and bgms endocrine on board Code(s): E11.9 - TYPE 2 DIABETES MELLITUS WITHOUT COMPLICATIONS (2) HTN (hypertension) Assessment/Plan: on meds Code(s): I10 - ESSENTIAL (PRIMARY) HYPERTENSION (3) HLD (hyperlipidemia) Code(s): E78.5 - HYPERLIPIDEMIA, UNSPECIFIED (4) Chronic hypoxemic respiratory failure Assessment/Plan: on oxygen Code(s): J96.11 - CHRONIC RESPIRATORY FAILURE WITH HYPOXIA (5) Hyperglycemic hyperosmolar nonketotic coma Assessment/Plan: on ivf insulin drip Code(s): E11.01 - TYPE 2 DIABETES MELLITUS WITH HYPEROSMOLARITY WITH COMA (6) Interstitial lung disease Assessment/Plan: on prednisone continue other home meds Code(s): J84.9 - INTERSTITIAL PULMONARY DISEASE, UNSPECIFIED Assessment/Plan awaiting pheresis nurse to evaluate patient for labial boil
[2018-08-29] MEDS: INSULIN (LEVEMIR) 100 UNITS/ML UNITS SQ SCH (06:25)
[2018-08-29] MEDS: INSULIN SLIDING SCALE (NOVOLOG) 1 VIAL SQ SCH ×5 (06:26→22:24)
[2018-08-29] MEDS: sitaGLIPtin PHOSPHATE 25 MG TABLET (FP) PO SCH (06:28)
[2018-08-29] MEDS ORDERED: DEXTROSE 5%-WATER 100 ML IVPB ONE (09:36)
[2018-08-29] MEDS: CEFTRIAXONE 2 GM in DEXTROSE 5%-WATER 100 ML IVPB SCH (09:38)
[2018-08-29] MEDS ORDERED: PT OWN MED DRAWER 7, Y5N ONE ×2 (10:07→21:47)
[2018-08-29] MEDS: predniSONE 20 MG TABLET (UD) PO SCH (10:11)
[2018-08-29] MEDS: MYCOPHENOLATE MOFETIL 500 MG TABLET PO SCH ×2 (10:11→22:21)
[2018-08-29] MEDS: AZITHROMYCIN IVPB 500 MG/250 ML BAG IVPB SCH (10:11)
[2018-08-29] MEDS: HEPARIN NA (PORCINE) 5,000 UNITS/ML 1ML VIAL SQ SCH ×2 (10:13→22:21)
[2018-08-29] MEDS: CHOLECALCIFEROL (VITAMIN D3) 400 UNIT TABLET (FP) PO SCH (10:14)
[2018-08-29] MEDS: PANTOPRAZOLE 40 MG TABLET (FP) PO SCH (10:14)
--- NOTE | 2018-08-29 14:24 | PN ---
Progress Note (short form) - Note Progress Note: PULMONARY States breathing is improving. No fevers or chills. +nonproductive cough. Vital Signs Period Temp Pulse Resp BP Sys/Shultz Pulse Ox Last 24 Hr 97.8 F-98.9 F 71-111 18-22 106-151/75-88 100-100 Gen: NAD at rest Heart: RRR Lung: decreased breath sounds at the bases Abd: soft, nontender Ext: no edema CBC, BMP 08/25/18 06:20 08/28/18 06:00 Active Medications Cholecalciferol (Vitamin D3 -) 800 unit PO DAILY [facility] Last Admin: 08/29/18 10:14 Dose: 800 unit Heparin Sodium (Porcine) (Heparin -) 5,000 unit SQ BID [facility] Last Admin: 08/29/18 10:13 Dose: 5,000 unit Azithromycin (Zithromax 500mg Ivpb (Pre-Docked)) 500 mg in 250 mls @ 250 mls/ hr IVPB DAILY [facility] Last Admin: 08/29/18 10:11 Dose: 250 mls/hr Ceftriaxone Sodium 2 gm/ (Dextrose) 100 mls @ 100 mls/hr IVPB DAILY [facility]; Protocol Last Admin: 08/29/18 09:38 Dose: 100 mls/hr Insulin Aspart (Novolog Vial Sliding Scale -) 1 vial SQ Q4HWA [facility]; Protocol Last Admin: 08/29/18 10:09 Dose: 8 units Insulin Detemir (Levemir Vial) 8 units SQ DAILY@0700 [facility] Last Admin: 08/29/18 06:25 Dose: 8 units Mycophenolate Mofetil (Cellcept -) 1,500 mg PO BID [facility] Last Admin: 08/29/18 10:11 Dose: 1,500 mg Ondansetron HCl (Zofran Injection) 4 mg IVPUSH Q6H PRN PRN Reason: NAUSEA AND/OR VOMITING Last Admin: 08/28/18 10:30 Dose: 4 mg Pantoprazole Sodium (Protonix -) 40 mg PO DAILY [facility] Last Admin: 08/29/18 10:14 Dose: 40 mg Prednisone (Deltasone -) 50 mg PO DAILY [facility] Last Admin: 08/29/18 10:11 Dose: 50 mg Sitagliptin Phosphate (Januvia -) 25 mg PO DAILY@0700 [facility] Last Admin: 08/29/18 06:28 Dose: 25 mg A/P Hyperglycemia improving Acute Kidney Injury improving DM HTN Interstitial Lung Disease r/o Pneumonia - antibiotics per ID - continue home dose of cellcept, prednisone - O2 to keep SpO2 >90% - pt has outpt f/u with pulmonary clinic at [facility] later this month - DVT prophylaxis
--- NOTE | 2018-08-29 18:17 | PN ---
Progress Note, Physician History of Present Illness: Pt seen and examined. Chart reviewed. She states she feels better overall, still with some BURT but no cough. Rt labial lesion with tenderness. Afebrile, without acute distress. - Current Medication List Current Medications: Active Medications Cholecalciferol (Vitamin D3 -) 800 unit PO [facility]ILY [facility] Last Admin: 08/29/18 10:14 Dose: 800 unit Heparin Sodium (Porcine) (Heparin -) 5,000 unit SQ BID [facility] Last Admin: 08/29/18 10:13 Dose: 5,000 unit Azithromycin (Zithromax 500mg Ivpb (Pre-Docked)) 500 mg in 250 mls @ 250 mls/ hr IVPB [facility] Last Admin: 08/29/18 10:11 Dose: 250 mls/hr Ceftriaxone Sodium 2 gm/ (Dextrose) 100 mls @ 100 mls/hr IVPB [facility]ILY [facility]; Protocol Last Admin: 08/29/18 09:38 Dose: 100 mls/hr Insulin Aspart (Novolog Vial Sliding Scale -) 1 vial SQ Q4HWA [facility]; Protocol Last Admin: 08/29/18 17:21 Dose: 8 units Insulin Detemir (Levemir Vial) 8 units SQ DAILY@0700 [facility] Last Admin: 08/29/18 06:25 Dose: 8 units Mycophenolate Mofetil (Cellcept -) 1,500 mg PO BID [facility] Last Admin: 08/29/18 10:11 Dose: 1,500 mg Ondansetron HCl (Zofran Injection) 4 mg IVPUSH Q6H PRN PRN Reason: NAUSEA AND/OR VOMITING Last Admin: 08/28/18 10:30 Dose: 4 mg Pantoprazole Sodium (Protonix -) 40 mg PO DAILY [facility] Last Admin: 08/29/18 10:14 Dose: 40 mg Prednisone (Deltasone -) 50 mg PO DAILY [facility] Last Admin: 08/29/18 10:11 Dose: 50 mg Sitagliptin Phosphate (Januvia -) 25 mg PO DAILY@0700 [facility] Last Admin: 08/29/18 06:28 Dose: 25 mg - Objective Vital Signs: Vital Signs Temperature 98.2 F 08/29/18 18:00 Pulse Rate 87 08/29/18 18:00 Respiratory Rate 20 08/29/18 18:00 Blood Pressure 119/70 08/29/18 18:00 O2 Sat by Pulse Oximetry (%) 100 08/29/18 09:00 Constitutional: Yes: No Distress, Calm Cardiovascular: Yes: Regular Rate and Rhythm Respiratory: Yes: CTA Bilaterally Gastrointestinal: Yes: Normal Bowel Sounds, Soft Genitourinary: Yes: Other (Rt labial boil, approx 2 cm, tender to touch) Extremities: Yes: WNL Neurological: Yes: Alert Labs: CBC, BMP 08/25/18 06:20 08/28/18 06:00 INR, PTT INR 1.00 (0.83-1.09) 08/25/18 06:20 Microbiology 08/24/18 12:04 Blood - Peripheral Venous Blood Culture - Final NO GROWTH AFTER 5 DAYS INCUBATION 08/24/18 12:05 Blood - Peripheral Venous Blood Culture - Final NO GROWTH AFTER 5 DAYS INCUBATION 08/25/18 19:02 Sputum - Expectorated Gram Stain - Final 08/25/18 19:02 Sputum - Expectorated Sputum Culture - Final Yeast Like Organism 08/24/18 22:15 Urine - Urine Clean Catch Urine Culture - Final Staphylococcus Intermedius 08/25/18 18:45 Throat Throat Culture - Final Yeast Like Organism 08/26/18 09:30 Urine For Antigen Detection Legionella Antigen - Final 08/26/18 09:30 Urine For Antigen Detection Streptococcus pneumoniae Antigen (M - Final Problem List - Problems (1) Chronic hypoxemic respiratory failure Code(s): J96.11 - CHRONIC RESPIRATORY FAILURE WITH HYPOXIA (2) Diabetes Code(s): E11.9 - TYPE 2 DIABETES MELLITUS WITHOUT COMPLICATIONS (3) HLD (hyperlipidemia) Code(s): E78.5 - HYPERLIPIDEMIA, UNSPECIFIED (4) HTN (hypertension) Code(s): I10 - ESSENTIAL (PRIMARY) HYPERTENSION (5) Hyperglycemic hyperosmolar nonketotic coma Code(s): E11.01 - TYPE 2 DIABETES MELLITUS WITH HYPEROSMOLARITY WITH COMA (6) Interstitial lung disease Code(s): J84.9 - INTERSTITIAL PULMONARY DISEASE, UNSPECIFIED Assessment/Plan ? PNA DM/hyperglycemia Chronic hypoxemic resp failure SIGRID ILD Rt labial boil -- pt afebrile, feeling a bit better -- will consider change to po antibiotics tomorrow -- assess labial boil for I+D
--- NOTE | 2018-08-29 19:35 | PN ---
Progress Note, Physician History of Present Illness: feeling better - Current Medication List Current Medications: Active Medications Cholecalciferol (Vitamin D3 -) 800 unit PO DAILY [facility] Last Admin: 08/29/18 10:14 Dose: 800 unit Heparin Sodium (Porcine) (Heparin -) 5,000 unit SQ BID [facility] Last Admin: 08/29/18 10:13 Dose: 5,000 unit Azithromycin (Zithromax 500mg Ivpb (Pre-Docked)) 500 mg in 250 mls @ 250 mls/ hr IVPB DAILY [facility] Last Admin: 08/29/18 10:11 Dose: 250 mls/hr Ceftriaxone Sodium 2 gm/ (Dextrose) 100 mls @ 100 mls/hr IVPB DAILY [facility]; Protocol Last Admin: 08/29/18 09:38 Dose: 100 mls/hr Insulin Aspart (Novolog Vial Sliding Scale -) 1 vial SQ Q4HWA [facility]; Protocol Last Admin: 08/29/18 17:21 Dose: 8 units Insulin Detemir (Levemir Vial) 8 units SQ DAILY@0700 [facility] Last Admin: 08/29/18 06:25 Dose: 8 units Mycophenolate Mofetil (Cellcept -) 1,500 mg PO BID [facility] Last Admin: 08/29/18 10:11 Dose: 1,500 mg Ondansetron HCl (Zofran Injection) 4 mg IVPUSH Q6H PRN PRN Reason: NAUSEA AND/OR VOMITING Last Admin: 08/28/18 10:30 Dose: 4 mg Pantoprazole Sodium (Protonix -) 40 mg PO DAILY [facility] Last Admin: 08/29/18 10:14 Dose: 40 mg Prednisone (Deltasone -) 50 mg PO DAILY [facility] Last Admin: 08/29/18 10:11 Dose: 50 mg Sitagliptin Phosphate (Januvia -) 25 mg PO DAILY@0700 [facility] Last Admin: 08/29/18 06:28 Dose: 25 mg - Objective Vital Signs: Vital Signs Temperature 98.2 F 08/29/18 18:00 Pulse Rate 87 08/29/18 18:00 Respiratory Rate 20 08/29/18 18:00 Blood Pressure 119/70 08/29/18 18:00 O2 Sat by Pulse Oximetry (%) 100 08/29/18 09:00 Constitutional: Yes: No Distress HENT: Yes: Atraumatic Neck: Yes: Supple Cardiovascular: Yes: Regular Rate and Rhythm Respiratory: Yes: CTA Bilaterally Gastrointestinal: Yes: Normal Bowel Sounds Extremities: Yes: WNL Edema: No Peripheral Pulses WNL: Yes Neurological: Yes: Alert, Oriented Labs: CBC, BMP 08/25/18 06:20 08/28/18 06:00 INR, PTT INR 1.00 (0.83-1.09) 08/25/18 06:20 Problem List - Problems (1) Diabetes Assessment/Plan: on insulin and bgms endocrine on board Code(s): E11.9 - TYPE 2 DIABETES MELLITUS WITHOUT COMPLICATIONS (2) HTN (hypertension) Assessment/Plan: on meds Code(s): I10 - ESSENTIAL (PRIMARY) HYPERTENSION (3) HLD (hyperlipidemia) Code(s): E78.5 - HYPERLIPIDEMIA, UNSPECIFIED (4) Chronic hypoxemic respiratory failure Assessment/Plan: on oxygen Code(s): J96.11 - CHRONIC RESPIRATORY FAILURE WITH HYPOXIA (5) Hyperglycemic hyperosmolar nonketotic coma Assessment/Plan: on ivf insulin drip Code(s): E11.01 - TYPE 2 DIABETES MELLITUS WITH HYPEROSMOLARITY WITH COMA (6) Interstitial lung disease Assessment/Plan: on prednisone continue other home meds Code(s): J84.9 - INTERSTITIAL PULMONARY DISEASE, UNSPECIFIED Assessment/Plan awaiting manager talent management to evaluate patient for labial boil
[2018-08-30] MEDS: sitaGLIPtin PHOSPHATE 25 MG TABLET (FP) PO SCH (06:53)
[2018-08-30] MEDS: INSULIN SLIDING SCALE (NOVOLOG) 1 VIAL SQ SCH ×5 (06:54→21:20)
[2018-08-30] MEDS: INSULIN (LEVEMIR) 100 UNITS/ML UNITS SQ SCH (06:54)
[2018-08-30] MEDS ORDERED: PT OWN MED DRAWER 7, Y5N ONE (09:59)
[2018-08-30] MEDS ORDERED: DEXTROSE 5%-WATER 100 ML IVPB ONE (10:00)
[2018-08-30] MEDS: PANTOPRAZOLE 40 MG TABLET (FP) PO SCH (10:10)
[2018-08-30] MEDS: predniSONE 20 MG TABLET (UD) PO SCH (10:10)
[2018-08-30] MEDS: HEPARIN NA (PORCINE) 5,000 UNITS/ML 1ML VIAL SQ SCH ×2 (10:10→21:18)
[2018-08-30] MEDS: MYCOPHENOLATE MOFETIL 500 MG TABLET PO SCH ×2 (10:12→22:36)
[2018-08-30] MEDS: CHOLECALCIFEROL (VITAMIN D3) 400 UNIT TABLET (FP) PO SCH (10:13)
[2018-08-30] MEDS: CEFTRIAXONE 2 GM in DEXTROSE 5%-WATER 100 ML IVPB SCH (10:13)
[2018-08-30] MEDS: AZITHROMYCIN IVPB 500 MG/250 ML BAG IVPB SCH ×2 (10:34→11:35)
--- NOTE | 2018-08-30 11:44 | PN ---
Progress Note (short form) - Note Progress Note: PULMONARY States breathing continues to improve. No fevers or chills. +nonproductive cough. Vital Signs Period Temp Pulse Resp BP Sys/Shultz Pulse Ox Last 24 Hr 98.2 F-98.7 F 87-102 18-22 119-119/70-94 99 Gen: NAD at rest Heart: RRR Lung: decreased breath sounds at the bases Abd: soft, nontender Ext: no edema CBC, BMP 08/25/18 06:20 08/28/18 06:00 Active Medications Cholecalciferol (Vitamin D3 -) [address] [facility] Last Admin: 08/30/18 10:13 Dose: 800 unit Heparin Sodium (Porcine) (Heparin -) 5,[address] [facility] Last Admin: 08/30/18 10:10 Dose: 5,000 unit Insulin Aspart (Novolog Vial Sliding Scale -) [address] [facility]; Protocol Last Admin: 08/30/18 10:14 Dose: 4 units Insulin Detemir (Levemir Vial) 8 units SQ DAILY@0700 [facility] Last Admin: 08/30/18 06:54 Dose: 8 units Mycophenolate Mofetil (Cellcept -) 1,[address] [facility] Last Admin: 08/30/18 10:12 Dose: 1,500 mg Ondansetron HCl (Zofran Injection) 4 mg IVPUSH Q6H PRN PRN Reason: NAUSEA AND/OR VOMITING Last Admin: 08/28/18 10:30 Dose: 4 mg Pantoprazole Sodium (Protonix -) [address] [facility] Last Admin: 08/30/18 10:10 Dose: 40 mg Prednisone (Deltasone -) [address] [facility] Last Admin: 08/30/18 10:10 Dose: 50 mg Sitagliptin Phosphate (Januvia -) 25 mg PO DAILY@0700 [facility] Last Admin: 08/30/18 06:53 Dose: 25 mg A/P Hyperglycemia improving Acute Kidney Injury improving DM HTN Interstitial Lung Disease r/o Pneumonia - continue home dose of cellcept, prednisone - O2 to keep SpO2 >90% - pt has outpt f/u with pulmonary clinic at [facility] later this month - DVT prophylaxis
[2018-08-30] MEDS ORDERED: INSULIN (NOVOLOG) ASPART 100 UNITS/ML 10ML VIAL ONE (13:49)
--- NOTE | 2018-08-30 15:51 | PN ---
Progress Note, Physician History of Present Illness: Pt states she feels better, less SOB, mild dry cough with deep inhalation. No new complaints. - Current Medication List Current Medications: Active Medications Cholecalciferol (Vitamin D3 -) 800 unit PO DAILY [facility] Last Admin: 08/30/18 10:13 Dose: 800 unit Heparin Sodium (Porcine) (Heparin -) 5,000 unit SQ BID [facility] Last Admin: 08/30/18 10:10 Dose: 5,000 unit Insulin Aspart ([facility] Sliding Scale -) [facility] Protocol Last Admin: 08/30/18 13:51 Dose: 4 units Insulin Detemir (Levemir Vial) 8 units SQ DAILY@0700 [facility] Last Admin: 08/30/18 06:54 Dose: 8 units Mycophenolate Mofetil (Cellcept -) 1,500 mg PO BID [facility] Last Admin: 08/30/18 10:12 Dose: 1,500 mg Ondansetron HCl (Zofran Injection) 4 mg IVPUSH Q6H PRN PRN Reason: NAUSEA AND/OR VOMITING Last Admin: 08/28/18 10:30 Dose: 4 mg Pantoprazole Sodium (Protonix -) 40 mg PO DAILY [facility] Last Admin: 08/30/18 10:10 Dose: 40 mg Prednisone (Deltasone -) 50 mg PO DAILY [facility] Last Admin: 08/30/18 10:10 Dose: 50 mg Sitagliptin Phosphate (Januvia -) 25 mg PO DAILY@0700 [facility] Last Admin: 08/30/18 06:53 Dose: 25 mg - Objective Vital Signs: Vital Signs Temperature 98.3 F 08/30/18 14:42 Pulse Rate 101 H 08/30/18 14:42 Respiratory Rate 20 08/30/18 14:42 Blood Pressure 118/74 08/30/18 14:42 O2 Sat by Pulse Oximetry (%) 94 L 08/30/18 09:00 Constitutional: Yes: No Distress, Calm Cardiovascular: Yes: Regular Rate and Rhythm Respiratory: Yes: Regular Gastrointestinal: Yes: Normal Bowel Sounds, Soft Genitourinary: Yes: WNL Integumentary: Yes: Other (Rt labial boil, no increase in size/tenderness) Neurological: Yes: Alert Labs: CBC, BMP 08/25/18 06:20 08/28/18 06:00 INR, PTT INR 1.00 (0.83-1.09) 08/25/18 06:20 Problem List - Problems (1) Chronic hypoxemic respiratory failure Code(s): J96.11 - CHRONIC RESPIRATORY FAILURE WITH HYPOXIA (2) Diabetes Code(s): E11.9 - TYPE 2 DIABETES MELLITUS WITHOUT COMPLICATIONS (3) HLD (hyperlipidemia) Code(s): E78.5 - HYPERLIPIDEMIA, UNSPECIFIED (4) HTN (hypertension) Code(s): I10 - ESSENTIAL (PRIMARY) HYPERTENSION (5) Hyperglycemic hyperosmolar nonketotic coma Code(s): E11.01 - TYPE 2 DIABETES MELLITUS WITH HYPEROSMOLARITY WITH COMA (6) Interstitial lung disease Code(s): J84.9 - INTERSTITIAL PULMONARY DISEASE, UNSPECIFIED Assessment/Plan ? PNA DM/hyperglycemia Chronic hypoxemic resp failure SIGRID ILD Rt labial boil -- pt afebrile, less SOB --d/c antibiotics -- needs tight glycemic control -- assess labial boil for I+D
--- NOTE | 2018-08-30 16:48 | PN ---
Progress Note, Physician - Current Medication List Current Medications: Active Medications Cholecalciferol (Vitamin D3 -) 800 unit PO DAILY [facility] Last Admin: 08/30/18 10:13 Dose: 800 unit Heparin Sodium (Porcine) (Heparin -) 5,000 unit SQ BID [facility] Last Admin: 08/30/18 10:10 Dose: 5,000 unit Insulin Aspart (Novolog Vial Sliding Scale -) [facility]; Protocol Last Admin: 08/30/18 13:51 Dose: 4 units Insulin Detemir (Levemir Vial) 8 units SQ DAILY@0700 [facility] Last Admin: 08/30/18 06:54 Dose: 8 units Mycophenolate Mofetil (Cellcept -) 1,500 mg PO BID [facility] Last Admin: 08/30/18 10:12 Dose: 1,500 mg Ondansetron HCl (Zofran Injection) 4 mg IVPUSH Q6H PRN PRN Reason: NAUSEA AND/OR VOMITING Last Admin: 08/28/18 10:30 Dose: 4 mg Pantoprazole Sodium (Protonix -) 40 mg PO DAILY [facility] Last Admin: 08/30/18 10:10 Dose: 40 mg Prednisone (Deltasone -) 50 mg PO DAILY [facility] Last Admin: 08/30/18 10:10 Dose: 50 mg Sitagliptin Phosphate (Januvia -) 25 mg PO DAILY@0700 [facility] Last Admin: 08/30/18 06:53 Dose: 25 mg - Objective Vital Signs: Vital Signs Temperature 98.3 F 08/30/18 14:42 Pulse Rate 101 H 08/30/18 14:42 Respiratory Rate 20 08/30/18 14:42 Blood Pressure 118/74 08/30/18 14:42 O2 Sat by Pulse Oximetry (%) 94 L 08/30/18 09:00 Constitutional: Yes: No Distress HENT: Yes: Atraumatic Neck: Yes: Supple Cardiovascular: Yes: Regular Rate and Rhythm Respiratory: Yes: CTA Bilaterally Gastrointestinal: Yes: Normal Bowel Sounds Extremities: Yes: WNL Edema: No Peripheral Pulses WNL: Yes Labs: CBC, BMP 08/25/18 06:20 08/28/18 06:00 INR, PTT INR 1.00 (0.83-1.09) 08/25/18 06:20 Problem List - Problems (1) Diabetes Assessment/Plan: on insulin and bgms endocrine on board Code(s): E11.9 - TYPE 2 DIABETES MELLITUS WITHOUT COMPLICATIONS (2) HTN (hypertension) Assessment/Plan: on meds Code(s): I10 - ESSENTIAL (PRIMARY) HYPERTENSION (3) HLD (hyperlipidemia) Code(s): E78.5 - HYPERLIPIDEMIA, UNSPECIFIED (4) Chronic hypoxemic respiratory failure Assessment/Plan: on oxygen Code(s): J96.11 - CHRONIC RESPIRATORY FAILURE WITH HYPOXIA (5) Hyperglycemic hyperosmolar nonketotic coma Assessment/Plan: on ivf insulin drip Code(s): E11.01 - TYPE 2 DIABETES MELLITUS WITH HYPEROSMOLARITY WITH COMA (6) Interstitial lung disease Assessment/Plan: on prednisone continue other home meds Code(s): J84.9 - INTERSTITIAL PULMONARY DISEASE, UNSPECIFIED
[2018-08-31] MEDS: INSULIN SLIDING SCALE (NOVOLOG) 1 VIAL SQ SCH ×5 (06:15→22:01)
[2018-08-31] MEDS: sitaGLIPtin PHOSPHATE 25 MG TABLET (FP) PO SCH (06:20)
[2018-08-31] MEDS: INSULIN (LEVEMIR) 100 UNITS/ML UNITS SQ SCH (06:20)
[2018-08-31 06:52] LABS: BASO % 0.2 % (0-2.0); EOS % 0.1 % (0-4.5); HEMATOCRIT 29.7 % (32.4-45.2); HEMOGLOBIN 10.1 GM/dL (10.7-15.3); MCH 32.5 pg (25.7-33.7); MCHC 34.1 g/dl (32.0-36.0); MEAN CELL VOLUME 95.5 fl (80-96); MEAN PLT VOLUME 9.1 fl (7.5-11.1); MONO % 4.8 % (3.8-10.2); NEUT % 60.9 % (42.8-82.8); PLATELET COUNT 194 K/MM3 (134-434); RBC 3.11 M/mm3 (3.60-5.2); RDW 16.3 % (11.6-15.6); WHITE BLOOD COUNT 7.1 K/mm3 (4.0-10.0)
[2018-08-31 07:13] LABS: ALBUMIN 2.3 g/dl (3.4-5.0); ALK PHOS 61 U/L (45-117); ANION GAP 6 MMOL/L (8-16); BILIRUBIN,TOTAL 0.3 mg/dL (0.2-1); BLOOD UREA NITROGEN 20 mg/dL (7-18); CALCIUM 8.6 mg/dL (8.5-10.1); CHLORIDE 104 mmol/L (98-107); CO2 29 mmol/L (21-32); CREATININE 0.7 mg/dL (0.55-1.3); GLUCOSE,RANDOM 126 mg/dL (74-106); POTASSIUM 3.7 mmol/L (3.5-5.1); SGOT/AST 22 U/L (15-37); SGPT/ALT 39 U/L (13-61); SODIUM 138 mmol/L (136-145); TOT PROT 4.9 g/dl (6.4-8.2)
[2018-08-31] MEDS ORDERED: INSULIN (LEVEMIR) 100 UNITS/ML UNITS SQ ONE (07:37)
[2018-08-31] MEDS ORDERED: INSULIN (NOVOLOG) ASPART 100 UNITS/ML 10ML VIAL ONE ×2 (07:37→17:47)
[2018-08-31] MEDS ORDERED: PT OWN MED DRAWER 7, Y5N ONE (09:51)
[2018-08-31] MEDS: MYCOPHENOLATE MOFETIL 500 MG TABLET PO SCH ×2 (09:52→22:04)
[2018-08-31] MEDS: predniSONE 20 MG TABLET (UD) PO SCH (09:52)
[2018-08-31] MEDS: CHOLECALCIFEROL (VITAMIN D3) 400 UNIT TABLET (FP) PO SCH (09:53)
[2018-08-31] MEDS: PANTOPRAZOLE 40 MG TABLET (FP) PO SCH (09:53)
[2018-08-31] MEDS: HEPARIN NA (PORCINE) 5,000 UNITS/ML 1ML VIAL SQ SCH ×2 (09:53→22:00)
[2018-08-31 10:59] LABS: ANISOCYTOSIS 1+; MACROCYTOSIS 1+; OVALOCYTE 1+; PLATELET ESTIMATE NORMAL
--- NOTE | 2018-08-31 12:03 | PN ---
Progress Note (short form) - Note Progress Note: Overall feels better. No CP. Some dry cough. Intake & Output 08/28/18 08/29/18 08/30/18 08/31/18 23:59 23:59 23:59 23:59 Intake Total 1924 1445 990 Balance 1924 1445 990 Last Vital Signs Temp Pulse Resp BP Pulse Ox 98.6 F 79 20 130/92 94 L 08/31/18 06:00 08/31/18 06:00 08/31/18 06:00 08/31/18 06:00 08/30/18 21:00 Active Medications Cholecalciferol (Vitamin D3 -) 800 unit PO DAILY [facility] Last Admin: 08/31/18 09:53 Dose: 800 unit Heparin Sodium (Porcine) (Heparin -) 5,000 unit SQ BID [facility] Last Admin: 08/31/18 09:53 Dose: 5,000 unit Insulin Aspart (Novolog V[facility] Sliding Scale -) [facility] Protocol Last Admin: 08/31/18 11:44 Dose: 6 units Insulin Detemir (Levemir Vial) 8 units SQ DAILY@0700 [facility] Last Admin: 08/31/18 06:20 Dose: 8 units Mycophenolate Mofetil (Cellcept -) 1,500 mg PO BID [facility] Last Admin: 08/31/18 09:52 Dose: 1,500 mg Ondansetron HCl (Zofran Injection) 4 mg IVPUSH Q6H PRN PRN Reason: NAUSEA AND/OR VOMITING Last Admin: 08/28/18 10:30 Dose: 4 mg Pantoprazole Sodium (Protonix -) 40 mg PO DAILY [facility] Last Admin: 08/31/18 09:53 Dose: 40 mg Prednisone (Deltasone -) 50 mg PO DAILY [facility] Last Admin: 08/31/18 09:52 Dose: 50 mg Sitagliptin Phosphate (Januvia -) 25 mg PO DAILY@0700 [facility] Last Admin: 08/31/18 06:20 Dose: 25 mg Gen: NAD at rest Heart: RRR Lung: decreased breath sounds at the bases, few scattered rhonchi Abd: soft, nontender Ext: no edema Laboratory Results - last 24 hr 08/30/18 08/30/18 08/30/18 13:47 17:40 21:18 WBC RBC Hgb Hct MCV MCH MCHC RDW Plt Count MPV Absolute Neuts (auto) Neutrophils % Neutrophils % (Manual) Band Neutrophils % Lymphocytes % Lymphocytes % (Manual) Monocytes % Monocytes % (Manual) Eosinophils % Eosinophils % (Manual) Basophils % Basophils % (Manual) Myelocytes % (Man) Promyelocytes % (Man) Blast Cells % (Manual) Nucleated RBC % Metamyelocytes Hypochromia Platelet Estimate Polychromasia Poikilocytosis Anisocytosis Microcytosis Macrocytosis Ovalocytes Sodium Potassium Chloride Carbon Dioxide Anion Gap BUN Creatinine Creat Clearance w eGFR POC Glucometer 244 323 352 Random Glucose Calcium Total Bilirubin AST ALT Alkaline Phosphatase Total Protein Albumin 08/31/18 08/31/18 08/31/18 06:00 06:00 06:12 WBC 7.1 RBC 3.11 L Hgb 10.1 L Hct 29.7 L MCV 95.5 MCH 32.5 MCHC 34.1 RDW 16.3 H Plt Count 194 D MPV 9.1 Absolute Neuts (auto) 4.3 Neutrophils % 60.9 Neutrophils % (Manual) 64.9 Band Neutrophils % 2.1 Lymphocytes % 34.0 D Lymphocytes % (Manual) 26.8 Monocytes % 4.8 D Monocytes % (Manual) 4 Eosinophils % 0.1 Eosinophils % (Manual) 0.0 Basophils % 0.2 Basophils % (Manual) 0.0 Myelocytes % (Man) 2 Promyelocytes % (Man) 0 Blast Cells % (Manual) 0 Nucleated RBC % 0 Metamyelocytes 0 Hypochromia 0 Platelet Estimate Normal Polychromasia 0 Poikilocytosis 0 Anisocytosis 1+ Microcytosis 0 Macrocytosis 1+ Ovalocytes 1+ Sodium 138 Potassium 3.7 Chloride 104 Carbon Dioxide 29 Anion Gap 6 L BUN 20 H Creatinine 0.7 Creat Clearance w eGFR 85.36 POC Glucometer 128 Random Glucose 126 H Calcium 8.6 Total Bilirubin 0.3 AST 22 ALT 39 Alkaline Phosphatase 61 Total Protein 4.9 L Albumin 2.3 L 08/31/18 11:32 WBC RBC Hgb Hct MCV MCH MCHC RDW Plt Count MPV Absolute Neuts (auto) Neutrophils % Neutrophils % (Manual) Band Neutrophils % Lymphocytes % Lymphocytes % (Manual) Monocytes % Monocytes % (Manual) Eosinophils % Eosinophils % (Manual) Basophils % Basophils % (Manual) Myelocytes % (Man) Promyelocytes % (Man) Blast Cells % (Manual) Nucleated RBC % Metamyelocytes Hypochromia Platelet Estimate Polychromasia Poikilocytosis Anisocytosis Microcytosis Macrocytosis Ovalocytes Sodium Potassium Chloride Carbon Dioxide Anion Gap BUN Creatinine Creat Clearance w eGFR POC Glucometer 270 Random Glucose Calcium Total Bilirubin AST ALT Alkaline Phosphatase Total Protein Albumin A/P Hyperglycemia improving Acute Kidney Injury improving DM HTN Interstitial Lung Disease r/o Pneumonia - Off antibiotics per ID - continue home dose of cellcept, prednisone - O2 to keep SpO2 >90% - pt has outpt f/u with pulmonary clinic at [facility] later this month - DVT prophylaxis - D/C planning Dr Aponte
--- NOTE | 2018-08-31 12:08 | PN ---
Progress Note, Physician History of Present Illness: doing well no issues - Current Medication List Current Medications: Active Medications Cholecalciferol (Vitamin D3 -) 800 unit PO DAILY [facility] Last Admin: 08/31/18 09:53 Dose: 800 unit Heparin Sodium (Porcine) (Heparin -) 5,000 unit SQ BID [facility] Last Admin: 08/31/18 09:53 Dose: 5,000 unit Insulin Aspart ([facility] Vial Sliding Scale -) [facility] Last Admin: 08/31/18 11:44 Dose: 6 units Insulin Detemir (Levemir Vial) 8 units SQ DAILY@0700 [facility] Last Admin: 08/31/18 06:20 Dose: 8 units Mycophenolate Mofetil (Cellcept -) 1,500 mg PO BID [facility] Last Admin: 08/31/18 09:52 Dose: 1,500 mg Ondansetron HCl (Zofran Injection) 4 mg IVPUSH Q6H PRN PRN Reason: NAUSEA AND/OR VOMITING Last Admin: 08/28/18 10:30 Dose: 4 mg Pantoprazole Sodium (Protonix -) 40 mg PO DAILY [facility] Last Admin: 08/31/18 09:53 Dose: 40 mg Prednisone (Deltasone -) 50 mg PO DAILY [facility] Last Admin: 08/31/18 09:52 Dose: 50 mg Sitagliptin Phosphate (Januvia -) 25 mg PO DAILY@0700 [facility] Last Admin: 08/31/18 06:20 Dose: 25 mg - Objective Vital Signs: Vital Signs Temperature 98.4 F 08/31/18 10:00 Pulse Rate 75 08/31/18 10:00 Respiratory Rate 20 08/31/18 10:00 Blood Pressure 130/80 08/31/18 10:00 O2 Sat by Pulse Oximetry (%) 94 L 08/30/18 21:00 Constitutional: Yes: No Distress, Calm Cardiovascular: Yes: Regular Rate and Rhythm Respiratory: Yes: Regular, CTA Bilaterally Gastrointestinal: Yes: Normal Bowel Sounds, Soft Musculoskeletal: Yes: WNL Extremities: Yes: WNL Neurological: Yes: Alert, Oriented Psychiatric: Yes: Alert, Oriented Labs: CBC, BMP 08/31/18 06:00 08/31/18 06:00 INR, PTT INR 1.00 (0.83-1.09) 08/25/18 06:20 Assessment/Plan Problem List - Problems (1) Interstitial lung disease Code(s): J84.9 - INTERSTITIAL PULMONARY DISEASE, UNSPECIFIED (2) Diabetes Code(s): E11.9 - TYPE 2 DIABETES MELLITUS WITHOUT COMPLICATIONS (3) HLD (hyperlipidemia) Code(s): E78.5 - HYPERLIPIDEMIA, UNSPECIFIED (4) HTN (hypertension) Code(s): I10 - ESSENTIAL (PRIMARY) HYPERTENSION (5) Chronic hypoxemic respiratory failure Code(s): J96.11 - CHRONIC RESPIRATORY FAILURE WITH HYPOXIA Assessment/Plan ASSESSMENT/PLAN: Resolved Hyperglycemia Resolved ARF AMS improving DM HTN ILD on cellcept/high dose Prednisone and apparently on a transplant list R/O PNA: low clinical suspicion plan can stop abx rest as per the team patient stable
--- NOTE | 2018-08-31 18:32 | PN ---
Progress Note, Physician - Current Medication List Current Medications: Active Medications Cholecalciferol (Vitamin D3 -) 800 unit PO DAILY [facility] Last Admin: 08/31/18 09:53 Dose: 800 unit Heparin Sodium (Porcine) (Heparin -) 5,000 unit SQ BID [facility] Last Admin: 08/31/18 09:53 Dose: 5,000 unit Insulin Aspart (Novolog Vial Sliding Scale -) [facility] Protocol Last Admin: 08/31/18 17:52 Dose: 8 units Insulin Detemir (Levemir Vial) 8 units SQ DAILY@0700 [facility] Last Admin: 08/31/18 06:20 Dose: 8 units Mycophenolate Mofetil (Cellcept -) 1,500 mg PO BID [facility] Last Admin: 08/31/18 09:52 Dose: 1,500 mg Ondansetron HCl (Zofran Injection) 4 mg IVPUSH Q6H PRN PRN Reason: NAUSEA AND/OR VOMITING Last Admin: 08/28/18 10:30 Dose: 4 mg Pantoprazole Sodium (Protonix -) 40 mg PO DAILY [facility] Last Admin: 08/31/18 09:53 Dose: 40 mg Prednisone (Deltasone -) 50 mg PO DAILY [facility] Last Admin: 08/31/18 09:52 Dose: 50 mg Sitagliptin Phosphate (Januvia -) 25 mg PO DAILY@0700 [facility] Last Admin: 08/31/18 06:20 Dose: 25 mg - Objective Vital Signs: Vital Signs Temperature 98.4 F 08/31/18 17:54 Pulse Rate 91 H 08/31/18 17:54 Respiratory Rate 18 08/31/18 17:54 Blood Pressure 135/89 08/31/18 17:54 O2 Sat by Pulse Oximetry (%) 94 L 08/30/18 21:00 Constitutional: Yes: No Distress HENT: Yes: Atraumatic Neck: Yes: Supple Cardiovascular: Yes: Regular Rate and Rhythm Respiratory: Yes: CTA Bilaterally Gastrointestinal: Yes: Normal Bowel Sounds Extremities: Yes: WNL Neurological: Yes: Alert, Oriented Labs: CBC, BMP 08/31/18 06:00 08/31/18 06:00 INR, PTT INR 1.00 (0.83-1.09) 08/25/18 06:20 Problem List - Problems (1) Diabetes Assessment/Plan: on insulin and bgms endocrine on board Code(s): E11.9 - TYPE 2 DIABETES MELLITUS WITHOUT COMPLICATIONS (2) HTN (hypertension) Assessment/Plan: on meds Code(s): I10 - ESSENTIAL (PRIMARY) HYPERTENSION (3) HLD (hyperlipidemia) Code(s): E78.5 - HYPERLIPIDEMIA, UNSPECIFIED (4) Chronic hypoxemic respiratory failure Assessment/Plan: on oxygen Code(s): J96.11 - CHRONIC RESPIRATORY FAILURE WITH HYPOXIA (5) Hyperglycemic hyperosmolar nonketotic coma Assessment/Plan: on ivf insulin drip Code(s): E11.01 - TYPE 2 DIABETES MELLITUS WITH HYPEROSMOLARITY WITH COMA (6) Interstitial lung disease Assessment/Plan: on prednisone continue other home meds Code(s): J84.9 - INTERSTITIAL PULMONARY DISEASE, UNSPECIFIED
--- NOTE | 2018-08-31 18:36 | DS ---
Physical Examination Vital Signs: Vital Signs Temperature 98.4 F 08/31/18 17:54 Pulse Rate 91 H 08/31/18 17:54 Respiratory Rate 18 08/31/18 17:54 Blood Pressure 135/89 08/31/18 17:54 O2 Sat by Pulse Oximetry (%) 94 L 08/30/18 21:00 Labs: CBC, BMP 08/31/18 06:00 08/31/18 06:00 Discharge Summary Reason For Visit: DIABETES MELLITUS W HYPEROSMOLAR COMA Current Active Problems Chronic hypoxemic respiratory failure (Acute) Diabetes (Acute) HLD (hyperlipidemia) (Acute) HTN (hypertension) (Acute) Hyperglycemic hyperosmolar nonketotic coma (Acute) Interstitial lung disease (Acute) Sore throat (Acute) Condition: Critical - Instructions - Home Medications Comprehensive Discharge Medication List: Ambulatory Orders Atorvastatin Calcium 10 mg PO DAILY 08/24/18 Cholecalciferol (Vitamin D3) [Vitamin D3] 800 unit PO DAILY 08/24/18 Metformin HCl [Glucophage] 500 mg PO BID 08/24/18 Mycophenolate Mofetil [Cellcept] 1,500 mg PO BID 08/24/18 Olmesartan Medoxomil [Benicar -] 20 mg PO DAILY 08/24/18 Pantoprazole Sodium 40 mg PO DAILY 08/24/18 Prednisone [Prednisone 50 MG TABLETS] 50 mg PO DAILY 08/24/18 Aspirin [ASA -] 81 mg PO DAILY 08/26/18 Sulfamethoxazole/Trimethoprim [Bactrim DS -] 1 tab PO ASDIR 08/26/18 Insulin Glargine,Hum.rec.anlog [Cameron Adame] 20 units SQ DAILY 08/28/18 Ozempic 0.25 units SQ WEEKLY 08/28/18 dc
[2018-09-01] MEDS: INSULIN SLIDING SCALE (NOVOLOG) 1 VIAL SQ SCH ×2 (06:21→09:31)
[2018-09-01] MEDS: sitaGLIPtin PHOSPHATE 25 MG TABLET (FP) PO SCH (06:22)
[2018-09-01] MEDS: INSULIN (LEVEMIR) 100 UNITS/ML UNITS SQ SCH (06:22)
[2018-09-01 09:01] VITALS: BP 117/81; PULSE 119; TEMP 98.6
[2018-09-01] MEDS ORDERED: PT OWN MED DRAWER 7, Y5N ONE (09:08)
[2018-09-01] MEDS: predniSONE 20 MG TABLET (UD) PO SCH (09:26)
[2018-09-01] MEDS: HEPARIN NA (PORCINE) 5,000 UNITS/ML 1ML VIAL SQ SCH (09:27)
[2018-09-01] MEDS: PANTOPRAZOLE 40 MG TABLET (FP) PO SCH (09:28)
[2018-09-01] MEDS: CHOLECALCIFEROL (VITAMIN D3) 400 UNIT TABLET (FP) PO SCH (09:28)
[2018-09-01] MEDS: MYCOPHENOLATE MOFETIL 500 MG TABLET PO SCH (09:28)
[2018-09-01] MEDS ORDERED: INSULIN (NOVOLOG) ASPART 100 UNITS/ML 10ML VIAL ONE (09:30)
--- NOTE | 2018-09-01 10:51 | CONS ---
DATE OF CONSULTATION: 09/01/2018 REASON FOR CONSULTATION: Vulvar abscess. HISTORY OF PRESENT ILLNESS: The patient is a 62-year-old female with a past medical history of chronic interstitial lung disease, hypertension, hyperlipidemia, and recently diagnosed diabetes, presently on steroids and oxygen, who was admitted for altered mental status and hyperglycemia. In the hospital, she was found to have a lump in her right upper labia, which was red and inflamed, with some discharge. She was treated with antibiotics. I was asked to look at it to rule out abscess. PHYSICAL EXAMINATION: General: The patient was alert and oriented, able to give history. She had no pain and stated that the area was open and discharge came out, and she does not have any symptoms at this time. Genitalia: External genitalia had a small labial abscess in the right upper part of the labia majora, which was dried up already. No cellulitis and no swelling noted, and no discharge after squeezing the area. Pelvic: The patient declined a pelvic exam. She states that she has an appointment for her physical and Pap smear in 2 weeks. IMPRESSION: Right upper labial abscess, which has resolved. RECOMMENDATIONS: The patient was treated with IV antibiotics. The patient was instructed to apply a warm compress. If she has any fever or pain, call the office and follow up in the office in 2 weeks. The patient understands the instructions and will make an appointment for followup in 2 weeks in the office. Eugenie [id number]
--- NOTE | 2018-09-02 15:54 | DS ---
Physical Examination Vital Signs: Vital Signs Temperature 98.6 F 09/01/18 09:01 Pulse Rate 119 H 09/01/18 09:01 Respiratory Rate 18 09/01/18 09:01 Blood Pressure 117/81 09/01/18 09:01 O2 Sat by Pulse Oximetry (%) 97 09/01/18 10:00 Constitutional: Yes: No Distress HENT: Yes: Atraumatic Neck: Yes: Supple Cardiovascular: Yes: Regular Rate and Rhythm Respiratory: Yes: CTA Bilaterally Gastrointestinal: Yes: Normal Bowel Sounds Extremities: Yes: WNL Neurological: Yes: Alert, Oriented Labs: CBC, BMP 08/31/18 06:00 08/31/18 06:00 Discharge Summary Reason For Visit: DIABETES MELLITUS W HYPEROSMOLAR COMA Condition: Critical - Instructions Diet, Activity, Other Instructions: check your blood sugar twice a day see your pmd regarding insulin and metformin Referrals: Rhys Simon MD [Staff Physician] - Disposition: HOME - Home Medications Comprehensive Discharge Medication List: Ambulatory Orders Atorvastatin Calcium 10 mg PO DAILY 08/24/18 Cholecalciferol (Vitamin D3) [Vitamin D3] 800 unit PO DAILY 08/24/18 Metformin HCl [Glucophage] 500 mg PO BID 08/24/18 Mycophenolate Mofetil [Cellcept] 1,500 mg PO BID 08/24/18 Olmesartan Medoxomil [Benicar -] 20 mg PO DAILY 08/24/18 Pantoprazole Sodium 40 mg PO DAILY 08/24/18 Prednisone [Prednisone 50 MG TABLETS] 50 mg PO DAILY 08/24/18 Aspirin [ASA -] 81 mg PO DAILY 08/26/18 Sulfamethoxazole/Trimethoprim [Bactrim DS -] 1 tab PO ASDIR 08/26/18 Insulin Glargine,Hum.rec.anlog [Toumiracleo Solostar] 20 units SQ DAILY 08/28/18 Ozempic 0.25 units SQ WEEKLY 08/28/18 Lancets/Blood Glucose Strips [Fora [id number] Strp-Lnct] 1 each BID #1 combo..pkg 08/31/18 Miscellaneous Medical Supply [Outpatient Order] 1 each ASDIR #1 misc Sitagliptin Phosphate [Januvia -] 25 mg PO DAILY@0700 #30 tab 08/31/18 THIS DC SUMMARY IS FOR 09/01/18
== END 2018-09-01 10:40 | disposition home or self-care (01) | DRG 638 ==
LOC: JER 11:10 → JERBED 13:15 → J5S 08-25 15:33
PROVIDERS: ADMIT Internal Medicine; ATTEND Internal Medicine
DX: E11.01 Type 2 diabetes mellitus with hyperosmolarity with coma (principal); J96.11 Chronic respiratory failure with hypoxia; J84.9 Interstitial pulmonary disease, unspecified; N17.9 Acute kidney failure, unspecified; N76.4 Abscess of vulva; I10 Essential (primary) hypertension; E78.5 Hyperlipidemia, unspecified; R41.82 Altered mental status, unspecified; I95.9 Hypotension, unspecified; Z79.4 Long term (current) use of insulin
CPT/HCPCS: 36415; 70450-TC; 71045-TC-FY; 80048; 80053; 81003; 82009; 82803; 82962; 83605; 83735; 84100; 84484; 85025; 85610; 85730; 87040; 87070; 87086; 87186; 87205; 87899; 93005; 93010; 97116-GP; 97162-GP; 99285-25; J1644; J7030; J7517